=== PATIENT | female | born 2000 | race Caucasian/White ===

== ENCOUNTER 2020-11-28 19:00 | Emergency (ER) | payer OTHER, SELFPAY ==
--- NOTE | 2020-11-28 19:03 | ED.DENTAL ---
HPI - Dental/Oral General Chief complaint: Dental/Oral Stated complaint: Toothache and Face is swollen Time Seen by Provider: 11/28/20 19:15 Source: patient and RN notes reviewed Mode of arrival: ambulatory Limitations: no limitations History of Present Illness HPI Narrative: 19-year-old female presents concern for left-sided dental pain. Reports she has wisdom teeth coming in and has been dealing with that for several months, however the last couple days started having worsening pain to the left upper and lower posterior teeth. Reports foul taste in her mouth. Denies fever, body aches, difficulty swallowing. Reports she has been taking ibuprofen for pain MD Complaint: tooth pain Related Data Allergies Allergy/AdvReac Type Severity Reaction Status Date / Time No Known Allergies Allergy Unverified 08/14/18 10:12 Review of Systems Review of Systems: Narrative: CONSTITUTIONAL: Denies malaise, chills, sweats, or fever. EYES: Denies visual changes ENT: Denies rhinorrhea, congestion, sinus pain, otalgia or sore throat. Reports left upper and lower posterior dental pain CARDIOVASCULAR: Denies chest pain, palpitations, or edema. RESPIRATORY: Denies cough or dyspnea. GASTROINTESTINAL: Denies abdominal pain, nausea, vomiting NEUROLOGIC: Denies numbness, weakness, or current headache. All systems reviewed & are unremarkable except as noted in HPI and below PMFSH Family History Family History (Updated 06/09/18 @ 08:37 by DOCTOR UNKNOWN) Father Family history of gout Family history of hypercholesterolemia Hypertension Mother Family history of mental disorder Family history of migraine headaches Family history of gallbladder disease Other Diabetes mellitus Family history of Parkinson's disease Family history of attention deficit hyperactivity disorder (ADHD) Family history of chronic obstructive pulmonary disease Family history of congestive heart failure Family history of dementia Family history of muscular dystrophy Malignant neoplasm of prostate Social History Social History Smoking status: Never smoker Alcohol intake: never Gender identity (if verbalized by the patient): Female Comments At time of signature, agree with nursing past medical, surgical, social and family history. There is no relevant family history pertinent to the presenting complaint Exam Narrative: Exam Narrative: GENERAL: Well-appearing, well-nourished, and in no acute distress. HEAD: Normocephalic, atraumatic. EYES: PERRLA, conjunctivae clear, and EOMI. No nystagmus. ENT: Nares clear. Mucous membranes moist. Oropharynx without edema, erythema or lesions. Tonsils not enlarged and without exudate. Gingival erythema upper and lower right side near tooth 1 and 32, mild right facial swelling NECK: Supple. No lymphadenopathy. CHEST: No respiratory distress. Speaks in full sentences. HEART: Regular rate and rhythm. SKIN: Warm, dry, no rash. NEURO: Alert and oriented x3. PSYCH: Normal mood and affect Course Course Emergency Course: Patient is aware of diagnosis, understands and agrees to treatment plan. Anticipatory guidance given. Patient agrees to follow-up as directed and is aware of reasons to seek care at the emergency department. Portions of this record may have been created with voice recognition software Vital Signs Vital signs: Reviewed. MDM - Dental/Oral MDM Narrative Medical decision making narrative: Patients pain and complaint coupled with physical findings are consistant with dentalgia. There are no focal signs of space occupying lesions that are compromising to the airway; no dysphagia, odynophagia, dysphonia, or dyspnea. No uvular deviation or soft palate edema. Patient is non-toxic appearing. The floor of the mouth is soft with no signs of Luis Fernando's Angina; no induration below mandible, no neck pain. Patient is without trismus or drooling and able to swallow secretions. Patient is felt appropriate for dischar
[2020-11-28 19:17] VITALS: BP 109/70; PULSE 100; RESP 16; O2SAT 100
== END 2020-11-28 19:23 | disposition home or self-care (01) ==
PROVIDERS: Emergency Provider Nurse Practitioner
DX: K08.89 Other specified disorders of teeth and supporting structures (principal)
CPT/HCPCS: 99213; G0463

== ENCOUNTER 2021-10-19 11:50 | Emergency (ER) | payer OTHER, SELFPAY ==
--- NOTE | 2021-10-19 11:55 | ED.URI ---
HPI - URI/Sore Throat General Chief Complaint: Upper Respiratory Infection Stated Complaint: sore throat runny nose Time Seen by Provider: 10/19/21 11:55 Source: patient Mode of arrival: ambulatory Limitations: no limitations History of Present Illness HPI Narrative: Ms. Keyes is a 20-year-old female patient presenting to the clinic today with complaints of runny nose and sore throat x2 days. She denies any fever or chills. Reports that her work wants her tested for COVID and flu. MD elicited complaint: sore throat and nasal congestion Related Data Home Medications Medication Instructions Recorded Confirmed No Home Medications 09/24/21 09/24/21 Allergies Allergy/AdvReac Type Severity Reaction Status Date / Time No Known Allergies Allergy Verified 10/19/21 12:01 Review of Systems Review of Systems: Pertinent positives per HPI. Patient denies any fever, chills, rash, headache, visual changes, dizziness, cough, shortness of breath, chest pain, palpitations, nausea, vomiting, diarrhea, constipation, abdominal pain, or any urinary issues. PMFSH Past Medical History Medical History Anxiety Migraine Migraine aura, persistent, intractable Surgical History Surgical History No history of previous surgery Family History Family History Father Family history of gout Family history of hypercholesterolemia Hypertension Diabetes mellitus Mother Family history of mental disorder Family history of migraine headaches Family history of gallbladder disease Depression Anxiety Sibling Depression Anxiety Grandparent Hypertension Other Family history of Parkinson's disease Family history of attention deficit hyperactivity disorder (ADHD) Family history of chronic obstructive pulmonary disease Family history of congestive heart failure Family history of dementia Family history of muscular dystrophy Malignant neoplasm of prostate Social History Social History Social History: Patient is single, lives with her family in [place]. 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 She has a few puffs of a cigar occasionally. Smoking status: Current some day smoker Tobacco type: e-cigarettes/vaping Alcohol intake: never Substance use: never Substance use type: does not use Gender identity (if verbalized by the patient): Female Agree to blood products: Yes Comments At the time of my signature, I reviewed and agree with the nursing past medical, surgical, social, and family history. There is no relevant family history pertinent to the patient complaint. Exam Narrative: General: Well-developed, well nourished, in no apparent distress Head: Normocephalic, atraumatic Eyes: Pupils equally round and reactive to light bilaterally, EOM intact, sclera and conjunctive clear, no discharge, lids normal Ears: TMs intact and dull, ear canals clear, no drainage, grossly hearing normal. Nose: Nares patent, clear nasal discharge, no inflammation, no sinus tenderness. Mouth: Oral pharynx without lesions or masses, good dentition, MMM. Oropharynx red, postnasal drip Neck: Supple, trachea midline, no enlargement of anterior or posterior cervical nodes, no thyroid masses or goiter palpable. Cardio: Regular rate and rhythm, s1 and s2 normal, no murmur appreciated. Resp: Clear to auscultation bilaterally, no rhonchi, rales, wheezing or rubs Course Course Emergency Course: Portions of this record may have been created with voice recognition software. Level of Care: Express Care Visit Vital Signs Vital signs: Vital signs reviewed MDM - URI/Sore Throat MDM Narrative Medical decision making narrative:
[2021-10-19 11:57] VITALS: BP 112/73; PULSE 92; RESP 16; TEMP 36.6; O2SAT 98
== END 2021-10-19 12:32 | disposition home or self-care (01) ==
PROVIDERS: Emergency Provider Nurse Practitioner Family
DX: J06.9 Acute upper respiratory infection, unspecified (principal); R09.82 Postnasal drip; J02.9 Acute pharyngitis, unspecified; F17.290 Nicotine dependence, other tobacco product, uncomplicated
CPT/HCPCS: 87081; 87426; 87804; 87880; 99213; C9803; G0463

== ENCOUNTER 2021-12-07 17:26 | Emergency (ER) | payer OTHER, SELFPAY ==
[2021-12-07 17:30] VITALS: BP 102/63; PULSE 70; RESP 16; TEMP 37.3; O2SAT 100
--- NOTE | 2021-12-07 17:32 | ED.EAR ---
HPI - Ear Problem General Chief complaint: Ear Stated complaint: ear pain Time Seen by Provider: 12/07/21 17:50 Source: patient and RN notes reviewed Mode of arrival: ambulatory Limitations: no limitations History of Present Illness HPI Narrative: 21-year-old female presents with concern for bilateral ear pain. She reports she started having ear pain when she [place] the [place] she denies drainage from her ears. She denies nasal congestion, rhinorrhea, sore throat, fever. MD Complaint: ear pain Related Data Allergies Allergy/AdvReac Type Severity Reaction Status Date / Time No Known Allergies Allergy Verified 12/07/21 17:43 Review of Systems Review of Systems: CONSTITUTIONAL: Denies malaise, chills, sweats, or fever. EYES: Denies visual changes, redness, or discharge. ENT: Denies rhinorrhea, congestion, sinus pain, and sore throat. Reports bilateral ear pain CARDIOVASCULAR: Denies chest pain, palpitations, or edema. RESPIRATORY: Denies cough. Denies dyspnea. GASTROINTESTINAL: Denies abdominal pain, nausea, vomiting, diarrhea SKIN: Denies rash or itching. MUSCULOSKELETAL: Denies myalgia. NEUROLOGIC: Denies headache. All systems reviewed & are unremarkable except as noted in HPI and below PMFSH Past Medical History Medical History Anxiety Migraine Migraine aura, persistent, intractable Surgical History Surgical History No history of previous surgery Family History Family History Father Family history of gout Family history of hypercholesterolemia Hypertension Diabetes mellitus Mother Family history of mental disorder Family history of migraine headaches Family history of gallbladder disease Depression Anxiety Sibling Depression Anxiety Grandparent Hypertension Other Family history of Parkinson's disease Family history of attention deficit hyperactivity disorder (ADHD) Family history of chronic obstructive pulmonary disease Family history of congestive heart failure Family history of dementia Family history of muscular dystrophy Malignant neoplasm of prostate Social History Social History Social History: Patient is single, lives with her family in [place]. 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 She has a few puffs of a cigar occasionally. Smoking status: Current some day smoker Tobacco type: e-cigarettes/vaping Alcohol intake: never Substance use: never Substance use type: does not use Gender identity (if verbalized by the patient): Female Agree to blood products: Yes Comments At time of signature, agree with nursing past medical, surgical, social and family history. There is no relevant family history pertinent to the presenting complaint Exam Narrative: GENERAL: Well-appearing, well-nourished, and in no acute distress. HEAD: Normocephalic EYES: PERRLA, conjunctivae clear ENT: Nares clear. Mucous membranes moist. TM pearly cerna with dull light reflex bilaterally; no tragal tenderness, bilateral EAC slightly erythematous and edematous without drainage Oropharynx not erythematous without lesions. Tonsils not enlarged and without exudate, no drooling, no hoarseness, no trismus, uvula midline. NECK: Supple. No lymphadenopathy CHEST: Clear to auscultation, breath sounds equal. No wheezing, rhonchi, rales, or stridor. No respiratory distress, speaks in full sentences. HEART: Regular rate and rhythm. No murmur heard. SKIN: Warm, dry, no rash. NEURO: Alert and oriented x3. PSYCH: Normal mood and affect Course Course Emergency Course: Patient is aware of diagnosis, understands and agrees to treatment plan. Anticipatory guidance given. Patient ag
== END 2021-12-07 18:04 | disposition home or self-care (01) ==
PROVIDERS: Emergency Provider Nurse Practitioner
DX: H60.93 Unspecified otitis externa, bilateral (principal); F17.290 Nicotine dependence, other tobacco product, uncomplicated
CPT/HCPCS: 99213; G0463

== ENCOUNTER 2022-09-22 17:51 | Emergency (ER) | payer OTHER, SELFPAY ==
--- NOTE | 2022-09-22 17:53 | ED.URI ---
HPI - URI/Sore Throat General Chief Complaint: Upper Respiratory Infection Stated Complaint: sore throat Time Seen by Provider: 09/22/22 17:53 Source: patient and RN notes reviewed History of Present Illness HPI Narrative: Patient is a 21-year-old female who presents to urgent care with complaints of a sore throat since yesterday. Patient denies any fever, nausea or vomiting. Patient states she took 1 dose of Mucinex this afternoon. No other acute complaints. No acute distress noted. Patient aware of the plan of care. Some parts of this dictation were generated by voice recognition software and may contain typographical and/or grammatical inaccuracies. Related Data Allergies Allergy/AdvReac Type Severity Reaction Status Date / Time No Known Allergies Allergy Verified 09/22/22 18:08 Review of Systems Review of Systems: CONSTITUTIONAL: Denies fever, chills, or sweats. EYES: Denies visual changes, redness, or discharge. ENT: Denies rhinorrhea, congestion, otalgia. Reports sore throat CARDIOVASCULAR: Denies chest pain, palpitations, or edema. RESPIRATORY: Denies cough or dyspnea. GASTROINTESTINAL: Denies abdominal pain, nausea, vomiting, or diarrhea. GENITOURINARY: Denies dysuria or hematuria. SKIN: Denies rash or itching. MUSCULOSKELETAL: Denies back pain, joint pain, or myalgia. NEUROLOGIC: Denies headache, numbness, or weakness. All other systems reviewed are negative, except as documented in HPI. [facility] Past Medical History Medical History (Updated 09/22/22 @ 18:25 by PATY Thomas) Anxiety Migraine Migraine aura, persistent, intractable Surgical History Surgical History (Updated 12/11/21 @ 14:26 by Ananya Samuel) No history of previous surgery [place] teeth removed (~11/2020) Family History Family History Father Family history of gout Family history of hypercholesterolemia Hypertension Diabetes mellitus Mother Family history of mental disorder Family history of migraine headaches Family history of gallbladder disease Depression Anxiety Sibling Depression Anxiety Grandparent Hypertension Other Family history of Parkinson's disease Family history of attention deficit hyperactivity disorder (ADHD) Family history of chronic obstructive pulmonary disease Family history of congestive heart failure Family history of dementia Family history of muscular dystrophy Malignant neoplasm of prostate Social History Social History Social History: Patient is single, lives with her family in [place]. 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 She has a few puffs of a cigar occasionally. Smoking status: Current some day smoker Tobacco type: e-cigarettes/vaping Alcohol intake: never Substance use: never Substance use type: does not use Living arrangements: with family Occupation/Education: occupation Gender identity (if verbalized by the patient): Female Agree to blood products: Yes Comments At the time of my signature, I reviewed and agree with the nursing past medical, surgical, social, and family history. There is no relevant family history pertinent to the patient complaint. Exam Narrative: GENERAL: This is a well-nourished, well-developed patient, in no apparent distress. HEAD: normocephalic, atraumatic. EYES: PERRL. Sclera clear/white. Vision is grossly intact. EARS: External ears normal, auditory canals clear and without drainage, TMs normal without perforation. Hearing grossly intact. NOSE: External nose normal with no obvious nasal discharge, nares without redness, no rhinorrhea. THROAT: Mucous membranes moist, mild erythema in the posterior pharynx with slight ulceration. Moderate postnasal drainage. NECK: Neck supple, non-tender without lymphadenopathy RESPIRATORY: Clear to auscultation. B
[2022-09-22 18:00] VITALS: BP 112/79; PULSE 83; RESP 14; TEMP 36.9; O2SAT 100
== END 2022-09-22 18:27 | disposition home or self-care (01) ==
PROVIDERS: Emergency Provider Nurse Practitioner Family; PCP Nurse Practitioner Family
DX: J02.0 Streptococcal pharyngitis (principal); F17.290 Nicotine dependence, other tobacco product, uncomplicated
CPT/HCPCS: 87880; 99213; G0463

== ENCOUNTER 2023-06-05 18:48 | Emergency (ER) | payer OTHER, SELFPAY ==
[2023-06-05 18:58] VITALS: BP 131/89; PULSE 100; RESP 16; TEMP 36.9; O2SAT 100
--- NOTE | 2023-06-05 19:05 | ED.URI ---
HPI - URI/Sore Throat General Chief Complaint: Upper Respiratory Infection Stated Complaint: throat Time Seen by Provider: 06/05/23 19:05 Source: patient, RN notes reviewed and old records reviewed Mode of arrival: ambulatory Limitations: no limitations History of Present Illness HPI Narrative: 22-year-old female presents to the [facility] with complaints of a sore throat for 1 week. Has taken Mucinex. Reports exposure to strep Treatments prior to arrival: cold medicine Related Data Allergies Allergy/AdvReac Type Severity Reaction Status Date / Time No Known Allergies Allergy Verified 09/22/22 18:08 Review of Systems Review of Systems: All systems reviewed & are unremarkable except as noted in HPI and below Constitutional: Constitutional: Reports as per HPI and Reports headache(s) Eyes: Eyes: Reports no additional eye complaints ENT: Reports as per HPI Cardiovascular: Cardiovascular: Reports no additional cardiovascular complaints, Denies chest pain and Denies dyspnea Respiratory: Respiratory: Reports no additional respiratory complaints, Denies chest congestion, Denies cough and Denies dyspnea Gastrointestinal: Gastrointestinal: Reports no additional gastrointestinal complaints, Denies abdominal pain, Denies nausea and Denies vomiting Musculoskeletal: Musculoskeletal: Reports no additional musculoskeletal complaints Integumentary/Breasts: Skin/Breast: Reports system reviewed and no additional complaints, except as docu Neurologic: Reports system reviewed and no additional complaints, except as documented Psychiatric: Psychiatric: Reports no additional psychiatric complaints Allergic/Immunologic: Allergic/Immunologic: Reports no additional allergic/immunologic complaints PMFSH Past Medical History Medical History Anxiety Migraine Migraine aura, persistent, intractable Surgical History Surgical History No history of previous surgery [place] teeth removed (~11/2020) Family History Family History Father Family history of gout Family history of hypercholesterolemia Hypertension Diabetes mellitus Mother Family history of mental disorder Family history of migraine headaches Family history of gallbladder disease Depression Anxiety Sibling Depression Anxiety Grandparent Hypertension Other Family history of Parkinson's disease Family history of attention deficit hyperactivity disorder (ADHD) Family history of chronic obstructive pulmonary disease Family history of congestive heart failure Family history of dementia Family history of muscular dystrophy Malignant neoplasm of prostate Social History Social History Social History: Patient is single, lives with her family in [place]. 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 She has a few puffs of a cigar occasionally. Smoking status: Current some day smoker Tobacco type: e-cigarettes/vaping Alcohol intake: never Substance use: never Substance use type: does not use Living arrangements: with family Occupation/Education: occupation Gender identity (if verbalized by the patient): Female Agree to blood products: Yes Comments At the time of my signature, I reviewed and agree with the nursing past medical, surgical, social, and family history. There is no relevant family history pertinent to the patient complaint. Exam Const: General: cooperative, healthy appearing, comfortable, no acute distress, well developed, alert and well nourished Nutritional Appearance: well nourished Orientation/consciousness: patient oriented x3 Limitations: no limitations HENMT: Head: normal to inspection Ears: hearing grossly normal bilaterally, external ear
== END 2023-06-05 19:19 | disposition home or self-care (01) ==
PROVIDERS: Emergency Provider Nurse Practitioner
DX: J02.0 Streptococcal pharyngitis (principal); F17.290 Nicotine dependence, other tobacco product, uncomplicated
CPT/HCPCS: 87880; 99213; G0463

== ENCOUNTER 2023-08-05 14:22 | Emergency (ER) | payer OTHER, SELFPAY ==
[2023-08-05 14:30] VITALS: BP 106/72; PULSE 67; RESP 14; TEMP 37.3; O2SAT 100
--- NOTE | 2023-08-05 15:02 | ED.URI ---
HPI - URI/Sore Throat General Chief Complaint: Upper Respiratory Infection Stated Complaint: Headache/Congestion/Cough Source: patient and RN notes reviewed Mode of arrival: ambulatory Limitations: no limitations History of Present Illness HPI Narrative: 22-year-old female presented for complaints of malaise, dry throat, headache, cough, subjective fever and chills. Onset 5 days. Denies shortness of breath, wheezing, nausea vomiting or lethargy. Endorses chronic diarrhea which is unchanged. MD elicited complaint: cough Related Data Allergies Allergy/AdvReac Type Severity Reaction Status Date / Time No Known Allergies Allergy Verified 09/22/22 18:08 Review of Systems Review of Systems: CONSTITUTIONAL: Endorses malaise, chills, sweats, fever EYES: Denies visual changes, redness, or discharge ENT: Reports rhinorrhea, congestion, sore throat CARDIOVASCULAR: Denies chest pain, palpitations, edema RESPIRATORY: Reports cough, post nasal drainage. Denies dyspnea GASTROINTESTINAL: Denies abdominal pain, nausea, vomiting, diarrhea SKIN: Denies rash or itching MUSCULOSKELETAL: Endorses myalgia NEUROLOGIC: endorses headache PMFSH Past Medical History Medical History Anxiety Migraine Migraine aura, persistent, intractable Surgical History Surgical History No history of previous surgery [place] teeth removed (~11/2020) Family History Family History Father Family history of gout Family history of hypercholesterolemia Hypertension Diabetes mellitus Mother Family history of mental disorder Family history of migraine headaches Family history of gallbladder disease Depression Anxiety Sibling Depression Anxiety Grandparent Hypertension Other Family history of Parkinson's disease Family history of attention deficit hyperactivity disorder (ADHD) Family history of chronic obstructive pulmonary disease Family history of congestive heart failure Family history of dementia Family history of muscular dystrophy Malignant neoplasm of prostate Social History Social History Social History: Patient is single, lives with her family in [place]. 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 She has a few puffs of a cigar occasionally. Smoking status: Current some day smoker Tobacco type: e-cigarettes/vaping Alcohol intake: never Substance use: never Substance use type: does not use Living arrangements: with family Occupation/Education: occupation Gender identity (if verbalized by the patient): Female Agree to blood products: Yes Exam Narrative: GENERAL: mildly Ill-appearing, nontoxic no acute distress. EYES: PERRLA, conjunctivae clear ENT: Mucous membranes moist. TMs pearly cerna with dull light reflex bilaterally; no tragal tenderness. Oropharynx erythematous without lesions or exudate, no drooling, no hoarseness, no trismus, uvula midline. CHEST: Clear to auscultation, breath sounds equal. No wheezing, rhonchi, rales, or stridor. No respiratory distress, speaks in full sentences. HEART: Regular rate and rhythm. No murmur heard. SKIN: Warm, dry, no rash. NEURO: Alert and oriented x3. PSYCH: Normal mood and affect Course Course Emergency Course: Patient is aware of diagnosis, understands and agrees to treatment plan. Anticipatory guidance given. Patient agrees to follow-up as directed and is aware of reasons to seek care at the emergency department. Portions of this record may have been created with voice recognition software Level of Care: Express Care Visit Vital Signs Vital signs: Vital Signs Temperature 99.1 F 08/05/23 14:30 Pulse Rate 67 08/05/23 14:30 Respiratory Rate 14 03
== END 2023-08-05 15:10 | disposition home or self-care (01) ==
PROVIDERS: Emergency Provider Nurse Practitioner Family
DX: J10.1 Influenza due to other identified influenza virus with other respiratory manifestations (principal); Z20.822 Contact with and (suspected) exposure to COVID-19; F17.290 Nicotine dependence, other tobacco product, uncomplicated
CPT/HCPCS: 87426; 87804; 99213; G0463

== ENCOUNTER 2024-02-26 09:18 | Emergency (ER) | payer OTHER, SELFPAY ==
[2024-02-26 09:24] VITALS: BP 105/71; PULSE 65; RESP 20; TEMP 36.7; O2SAT 100
--- NOTE | 2024-02-26 09:29 | ED.URI ---
HPI - URI/Sore Throat General Chief Complaint: Upper Respiratory Infection Stated Complaint: throat/cough/headache Time Seen by Provider: 02/26/24 09:29 Source: patient Mode of arrival: ambulatory Limitations: no limitations History of Present Illness HPI Narrative: 23-year-old female presents with complaint of sore throat, cough, congestion, headache and fatigue for 1 day. Afebrile. Reports exposure to COVID at office from her coworkers. Patient also requesting strep test. Denies nausea vomiting diarrhea. Not taking any bycc-[id number]-[id number] medications to treat her symptoms other than Flonase for her allergies. all systems reviewed and negative except as noted above. Related Data Home Medications Medication Instructions Recorded Confirmed No Home Medications 02/26/24 02/26/24 Allergies Allergy/AdvReac Type Severity Reaction Status Date / Time No Known Allergies Allergy Verified 09/22/22 18:08 Review of Systems Review of Systems: CONSTITUTIONAL: Denies fever, chills, or sweats. EYES: Denies visual changes, redness, or discharge. ENT: Reports rhinorrhea, congestion, sore throat. Denies otalgia. CARDIOVASCULAR: Denies chest pain, palpitations, or edema. RESPIRATORY: reports cough. Denies dyspnea. GASTROINTESTINAL: Denies abdominal pain, nausea, vomiting, or diarrhea. GENITOURINARY: Denies dysuria or hematuria. SKIN: Denies rash or itching. MUSCULOSKELETAL: Denies back pain, joint pain, or myalgia. NEUROLOGIC: reports headache. Denies numbness, or weakness. PSYCHIATRIC: Denies anxiety or depression. All other systems reviewed are negative, except as documented in HPI. [facility] Past Medical History Medical History Anxiety Migraine Migraine aura, persistent, intractable Surgical History Surgical History No history of previous surgery [place] teeth removed (~11/2020) Family History Family History Father Family history of gout Family history of hypercholesterolemia Hypertension Diabetes mellitus Mother Family history of mental disorder Family history of migraine headaches Family history of gallbladder disease Depression Anxiety Sibling Depression Anxiety Grandparent Hypertension Other Family history of Parkinson's disease Family history of attention deficit hyperactivity disorder (ADHD) Family history of chronic obstructive pulmonary disease Family history of congestive heart failure Family history of dementia Family history of muscular dystrophy Malignant neoplasm of prostate Social History Social History Social History: Patient is single, lives with her family in [place]. 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 She has a few puffs of a cigar occasionally. Smoking status: Current some day smoker Tobacco type: e-cigarettes/vaping Alcohol intake: never Substance use: never Substance use type: does not use Living arrangements: with family Occupation/Education: occupation Gender identity (if verbalized by the patient): Female Agree to blood products: Yes Comments At time of signature, agree with nursing past medical, surgical, social and family history. There is no relevant family history pertinent to the presenting complaint. Exam Narrative: GENERAL: This is a well-nourished, well-developed patient, in no apparent distress. HEAD: normocephalic, atraumatic. EYES: PERRL. Sclera clear/white. Vision is grossly intact. EARS: External ears normal, auditory canals clear and without drainage, TMs normal without perforation. Hearing grossly intact. NOSE: External nose normal with no obvious nasal discharge, nares without redness, no rhinorrhea. THROAT: Mucous membranes moist
[2024-02-26 09:54] LABS: EDSTREPNEGPOS1 Negative (Negative)
== END 2024-02-26 10:02 | disposition home or self-care (01) ==
PROVIDERS: Emergency Provider Nurse Practitioner Family
DX: J06.9 Acute upper respiratory infection, unspecified (principal); B97.89 Other viral agents as the cause of diseases classified elsewhere; F17.210 Nicotine dependence, cigarettes, uncomplicated
CPT/HCPCS: 87081; 87880; 99213; G0463

== ENCOUNTER 2024-04-02 15:42 | Emergency (ER) | payer OTHER, SELFPAY ==
--- NOTE | ~2024-04-02 | XR_ITS ---
EXAMINATION: XR chest 2V DATE: 04/02/2024 16:22 INDICATION: Cough TECHNIQUE: PA and lateral views of the chest were obtained. COMPARISON: None FINDINGS: The lungs are clear with no focal airspace opacities, pulmonary edema, pleural effusion or pneumothor ax. The cardiomediastinal silhouette is normal. Mild thoracic dextrocurvature. IMPRESSION: 1. No acute cardiopulmonary disease. Reviewed, dictated and finalized at location A.
--- NOTE | 2024-04-02 15:55 | ED.URI ---
HPI - URI/Sore Throat General Chief Complaint: Upper Respiratory Infection Stated Complaint: Sore Throat/Chest Congestion Time Seen by Provider: 04/02/24 15:55 Source: patient and RN notes reviewed Mode of arrival: ambulatory Limitations: no limitations History of Present Illness HPI Narrative: 23-year-old female presents with concern for day history of sore throat, cough, hoarse voice. She denies fever, body aches, chills, sweats. MD elicited complaint: cough and sore throat Related Data Allergies Allergy/AdvReac Type Severity Reaction Status Date / Time No Known Allergies Allergy Verified 04/02/24 16:03 Review of Systems Review of Systems: CONSTITUTIONAL: Denies malaise, chills, sweats, or fever. EYES: Denies visual changes, redness, or discharge. ENT: Reports sore throat. CARDIOVASCULAR: Denies chest pain, palpitations, or edema. RESPIRATORY: Reports cough. Denies dyspnea. GASTROINTESTINAL: Denies abdominal pain, nausea, vomiting, diarrhea SKIN: Denies rash or itching. MUSCULOSKELETAL: Denies myalgia. NEUROLOGIC: Denies headache. All systems reviewed & are unremarkable except as noted in HPI and below PMFSH Past Medical History Medical History Anxiety Migraine Migraine aura, persistent, intractable Surgical History Surgical History No history of previous surgery [place] teeth removed (~11/2020) Family History Family History Father Family history of gout Family history of hypercholesterolemia Hypertension Diabetes mellitus Mother Family history of mental disorder Family history of migraine headaches Family history of gallbladder disease Depression Anxiety Sibling Depression Anxiety Grandparent Hypertension Other Family history of Parkinson's disease Family history of attention deficit hyperactivity disorder (ADHD) Family history of chronic obstructive pulmonary disease Family history of congestive heart failure Family history of dementia Family history of muscular dystrophy Malignant neoplasm of prostate Social History Social History Social History: Patient is single, lives with her family in [place]. 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 She has a few puffs of a cigar occasionally. Smoking status: Current some day smoker Tobacco type: e-cigarettes/vaping Alcohol intake: never Substance use: never Substance use type: does not use Living arrangements: with family Occupation/Education: occupation Gender identity (if verbalized by the patient): Female Agree to blood products: Yes Comments At time of signature, agree with nursing past medical, surgical, social and family history. There is no relevant family history pertinent to the presenting complaint Exam Narrative: GENERAL: Well-appearing, well-nourished, and in no acute distress. HEAD: Normocephalic EYES: PERRLA, conjunctivae clear ENT: Nares clear. Mucous membranes moist. TM pearly cerna with sharp light reflex bilaterally; no tragal tenderness. Oropharynx erythematous without lesions. Tonsils not enlarged and without exudate, no drooling, no trismus, uvula midline. Hoarse voice NECK: Supple. No lymphadenopathy CHEST: Clear to auscultation, breath sounds equal. No wheezing, rhonchi, rales, or stridor. No respiratory distress, speaks in full sentences. HEART: Regular rate and rhythm. No murmur heard. SKIN: Warm, dry, no rash. NEURO: Alert and oriented x3. PSYCH: Normal mood and affect Course Course Emergency Course: Patient is aware of diagnosis, understands and agrees to treatment plan. Anticipatory guidance given. Patient agrees to follow-up as directed and is aware of reasons to seek care at the emergency department. Portions of this record may have been created with voice recognition software Level of Care: Express Care Visit Vital Signs Vital signs: Reviewed. MDM - URI/Sore Throat MDM Narrative Medical decision making narrative: Differential diagnosis considered: Vance virus, strep pharyngitis, allergic rhinitis, upper respiratory tract infection, sinusitis, rhinosinusitis, nasopharyngitis. viral pharyngitis, otitis media, otitis externa, pneumonia, bronchitis, viral cough syndrome, viral syndrome, and influenza. Exam findings show no acute concerns or changes; patient is non-toxic appearing and is in no distress. Patient is appropriate for outpatient treatment and follow-up. Lab Data Attestation: I reviewed the patient's lab results. Imaging Data My impression: Images reviewed, interpreted by radiologist, agree, see report. Radiologist's impression: EXAMINATION: XR chest 2V DATE: 04/02/2024 16:22 INDICATION: Cough TECHNIQUE: PA and lateral views of the chest were obtained. COMPARISON: None FINDINGS: The lungs are clear with no focal airspace opacities, pulmonary edema, pleural effusion or pneumothorax. The cardiomediastinal silhouette is normal. Mild thoracic dextrocurvature. IMPRESSION: 1. No acute cardiopulmonary disease. Critical Care Time Critical Care Time Critical Care Time: No Discharge Plan Discharge Clinical Impression: Bronchitis Patient Disposition: Home, Self-Care Condition: Stable Instructions: Acute Bronchitis (ED) Additional Instructions: Your x-ray is normal, you do not have pneumonia Your rapid strep swab was negative today at [facility]. A throat culture will be sent to the laboratory for further testing. If the test is positive, you will receive a phone call within 48 hours and an appropriate antibiotic will be initiated at that time. Your symptoms are likely due to a viral illness, which is not treated with antibiotics. Viral symptoms can be present for up to a few weeks. -Alternate Tylenol and Motrin per package directions for fever or pain. -Antihistamine medication such as Benadryl at night and Zyrtec during the day can help improve symptoms. -Eat and drink things that are easy to swallow, like tea or soup, or popsicles to suck on. -Oral rinses such as: Salt water gargles and/or may use topical anesthetic (eg. Chloraseptic spray) or lozenges to relieve dryness or throat pain). -Frequent hand washing or hand mohs surgeon/general dermatologist is one of the best ways to prevent spread of infection. -Follow up with primary care provider in 2-3 days if condition is not improving; or seek ER visit if you have trouble breathing, cannot drink enough fluids, have muffled voice, difficulty opening your mouth, or severe swelling. Prescriptions: New dextromethorphan-guaifenesin [Mucinex DM] 60-1,200 mg tablet extended release 12 hr 1 tablet PO Q12H Qty: 12 0RF methylprednisolone [Medrol (Nato)] 4 mg tablets,dose pack See Rx Instructions .ROUTE .COMPLEX Qty: 21 0RF Rx Instructions: orally per package directions Follow-up/Referrals: UNKNOWN,DOCTOR [Primary Care Provider] - Stand Alone Forms: Work/School Release IP Time of Disposition: 16:29
[2024-04-02 15:56] VITALS: BP 103/70; PULSE 75; RESP 16; TEMP 36.9; O2SAT 100
[2024-04-02 16:11] LABS: EDSTREPNEGPOS1 Negative (Negative)
== END 2024-04-02 16:40 | disposition home or self-care (01) ==
PROVIDERS: Emergency Provider Nurse Practitioner
DX: J40 Bronchitis, not specified as acute or chronic (principal); F17.290 Nicotine dependence, other tobacco product, uncomplicated
CPT/HCPCS: 71046; 87081; 87880; 99213; G0463

== ENCOUNTER 2024-07-19 13:41 | Emergency (ER) | payer OTHER, SELFPAY ==
--- NOTE | ~2024-07-19 | XR_ITS ---
Clinical Indication: Chest pain PA and lateral views of the chest: Comparison: 04/02/2024 Findings: The lungs are clear, without evidence of focal consolidation or pleural effusion. Cardiome diastinal silhouette is within normal limits. Bones and soft tissues are unremarkable. Impression: Normal chest. Reviewed, dictated and finalized at [facility]. L STITCHER Impression: Normal chest.
[2024-07-19 13:57] VITALS: BP 124/76; PULSE 87; RESP 20; TEMP 36.5
--- NOTE | 2024-07-19 14:49 | ED_ITS ---
HPI - General Adult General Chief complaint: Chest Pain Stated complaint: Chest Pain Time Seen by Provider: 07/19/24 14:30 Source: patient, RN notes reviewed and old records reviewed Mode of arrival: ambulatory Limitations: no limitations History of Present Illness HPI narrative: 23 year old female presents to [facility] care with complaint of having some upper chest discomfort which occurred when she stood up after lying down last night. Patient reports that pain worse with deep breathing or with hiccups or yawning.. Patient reports that she thought she was having a panic attack. Patient reports that when she got up this morning pain is back and it radiates to her left shoulder and neck muscle and it shoots shocking pain to her pointer finge, denies any knwn injury.. 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 Patient reports that she has not traveled lately or is not on control pills patient does vape daily. Patient appears in no distress with respirations even and nonlabored with SAO2 99% on room air. MD complaint: upper chest pain radiates to left shouler , side of neck, shoots index fing Onset (ago): day(s) (since last night) Location: chest (upper chest left shoulder, neck and to index finger.) Severity scale (1-10): 6 Treatments prior to arrival: none Related Data Allergies Allergy/AdvReac Type Severity Reaction Status Date / Time No Known Allergies Allergy Verified 07/19/24 13:52 Review of Systems Review of Systems: CONSTITUTIONAL: Denies fever, chills, or sweats. EYES: Denies visual changes, redness, or discharge. ENT: Denies rhinorrhea, congestion, sore throat, or otalgia. CARDIOVASCULAR: upper chest pain,no palpitations, or edema.states increased pain with deep breathing yawning and hiccups RESPIRATORY: Denies cough or dyspnea. GASTROINTESTINAL: Denies abdominal pain, nausea, vomiting, or diarrhea. GENITOURINARY: Denies dysuria or hematuria. SKIN: Denies rash or itching. MUSCULOSKELETAL: Denies back pain, joint pain, reports pain from upper chest to left shoulder to her neck and shooting pain down to index finger with no known injury NEUROLOGIC: Denies headache, numbness, or weakness. PSYCHIATRIC: Positive for anxiety or depression. All systems reviewed & are unremarkable except as noted in HPI and below PMFSH Past Medical History Medical History Migraine aura, persistent, intractable Migraine Anxiety Surgical History Surgical History [place] teeth removed (~11/2020) No history of previous surgery Family History Family History Father Family history of gout Family history of hypercholesterolemia Hypertension Diabetes mellitus Mother Family history of mental disorder Family history of migraine headaches Family history of gallbladder disease Depression Anxiety Sibling Depression Anxiety Grandparent Hypertension Other Family history of Parkinson's disease Family history of attention deficit hyperactivity disorder (ADHD) Family history of chronic obstructive pulmonary disease Family history of congestive heart failure Family history of dementia Family history of muscular dystrophy Malignant neoplasm of prostate Social History Social History (Updated 07/21/24 @ 16:43 by Carla Mercer NP) Social History: Patient is single, lives with her family in [place]. 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 She has a few puffs of a cigar occasionally. Smoking status: Current every day smoker Tobacco type: e-cigarettes/vaping Alcohol intake: never Substance use: never Substance use type: does not use Living arrangements: with family Occupation/Education: occupation Gender identity (if verbalized by the patient): Female Agree to blood products: Yes Comments At time of signature, agree with nursing past medical, surgical, social and family history. There is no relevant family history pertinent to the presenting complaint Exam Narrative: GENERAL: Well-appearing, well-nourished, and in no acute distress. HEAD: Normocephalic, atraumatic. EYES: PERRLA and EOMI. ENT: Nares clear, no rhinorrhea or epistaxis. Mucous membranes moist.TM's normal throat pink with no swelling NECK: Supple. no lymphadenopathy, moves neck well with no limitations CHEST: Clear to auscultation. No respiratory distress. no tachypnea or any retractions SAO2 99% on room air HEART: Regular rate and rhythm. No murmur heard. Normal peripheral pulses. ABDOMEN: Soft, nontender, nondistended, normal active bowel sounds. EXTREMITIES: Normal range of motion. No edema.pain to left shoulder reproducible with movement.strong pulses to all extremities SKIN: Warm, dry, no rash. NEURO: No focal deficits. Alert and oriented x3. Course Course Emergency Course: Patient is aware of diagnosis, understands and agrees to treatment plan.? Anticipatory guidance given.? Patient agrees to follow-up as directed and is aware of reasons to seek care at the emergency department. Portions of this record may have been created with voice recognition software Level of Care: Express Care Visit Vital Signs Vital signs: Vital Signs Temperature 36.5 C 07/19/24 13:57 Pulse Rate 87 07/19/24 13:57 Respiratory Rate 20 07/19/24 13:57 Blood Pressure 124/76 07/19/24 13:57 Oxygen Delivery Room Air 07/19/24 13:57 Temperature 36.5 C 07/19/24 13:57 Pulse Rate 87 07/19/24 13:57 Respiratory Rate 20 07/19/24 13:57 Blood Pressure 124/76 07/19/24 13:57 Oxygen Delivery Room Air 07/19/24 13:57 Reviewed Medical Decision Making MDM Narrative Medical decision making narrative: Exam findings and imaging show no acute concerns or changes; patient is non- toxic appearing and is in no distress.? Patient is appropriate for outpatient treatment and follow-up Differential Diagnosis Differential Diagnosis: atypical chest pain, anxiety, costochondritis, muscle strain Medical Records Medical records reviewed: Yes I reviewed the external patient's medical records. Vital Signs Vital Signs: Vital Signs Temperature 36.5 C 07/19/24 13:57 Pulse Rate 87 07/19/24 13:57 Respiratory Rate 07/19/24 13:57 Blood Pressure 124/76 07/19/24 13:57 Oxygen Delivery Room Air 07/19/24 13:57 Temperature 36.5 C 07/19/24 13:57 Pulse Rate 87 07/19/24 13:57 Respiratory Rate 20 07/19/24 13:57 Blood Pressure 124/76 07/19/24 13:57 Oxygen Delivery Room Air 07/19/24 13:57 Imaging Data Attestation: I personally reviewed and interpreted this imaging study as follows: My impression: normal chest Radiologist's impression: [facility] [address] [place] [address] XRay Report Signed Patient: Arlyn Keyes : 2000 MR#: [id number] Age: 23 Acct:[id number] Loc: [facility] ADM Date: 07/19/24Attending Dr: Ordering Physician: Carla Mercer APRN Date of Service: 07/19/24 Procedure(s): XR chest 2V Accession Number(s): [id number] cc: TOUR NARRATOR PHYSICIAN; Carla Mercer APRN~ Clinical Indication: Chest pain PA and lateral views of the chest: Comparison: 04/02/2024 Findings: The lungs are clear, without evidence of focal consolidation or pleural effusion. Cardiomediastinal silhouette is within normal limits. Bones and soft tissues are unremarkable. Impression: Normal chest. Reviewed, dictated and finalized at location . N CAPITAL MANAGER Please be advised this is a medical document. It is intended for [id number]-pt-[id number] communication. It is written in medical language and may contain unfamiliar abbreviations or verbiage. Medical documents are intended to carry relevant information, facts as evident, and the clinical opinion of the practitioner at the time of the encounter. This report may have been done utilizing a voice recognition system. Attempts have been made to correct errors. However, there may be uncorrected grammatical, spelling, and recognition errors present. The file time of this note does not necessarily represent the time of service. Dictated By: Joni Blair MD 07/19/24 1442 Signed By: <Electronically signed by Joni Blair MD in OV> Critical Care Time Critical Care Time Critical Care Time: No Discharge Plan Discharge Clinical Impression: Costalchondritis Patient Disposition: Home, Self-Care Condition: Stable Instructions: Costochondritis (ED) Additional Instructions: Increase fluids especially juices and water [id number] cough and cold medicine of your choice for any symptoms Tylenol or ibuprofen for fever pain Steroids as directed--take with food heat to the face 20-30 minutes 4-6 times a day for pain Salt water gargles, throat lozenges or throat sprays as desired Any increased pain or any shortness of breath go directly to the emergency room If your symptoms persist, change or worsen significantly before you can contact your personal physician then please, without delay, go to the emergency department for further evaluation. Follow-up with PCP in 7-10 days or sooner if needed Patient Language: Togolese Prescriptions: New prednisone 20 mg tablet 20 mg PO BID Qty: 10 0RF Follow-up/Referrals: PHYSICIAN,TOUR NARRATOR [Primary Care Provider] - Time of Disposition: 15:01 Quality Elpidio Coma Scale Eyes: Open Verbal: Oriented and Alert Motor: Follows Commands Olga Coma Total Score: 15
--- OUTSIDE RECORDS SUMMARY | 2024-07-19 16:18 | XMS_ITS | Referral Summary ---
Author Organization [facility] [address] [facility] Address [address] [place] [address] Phone Care Team Providers Care Order Desk Clerk Name Role Phone Miscellaneous, Not In File Primary Care Provider Unavailable Encounters Date Type Department Care Team Description 04/19/2024 6:15 PM THIN FILM TECHNICIAN Office Visit [facility] [address] [place] [address] Sakshi Frankel NP Paronychia of great toe of left foot (Primary Dx) from Last 3 Months Allergies No known active allergies Medications famotidine (PEPCID) 20 mg tablet Take 1 tablet (20 mg total) by mouth 2 (two) times a day for 7 days 14 tablet 2 Active ondansetron (ZOFRAN) 4 mg tablet Take 1 tablet (4 mg total) by mouth every 6 (six) hours 6 tablet 2 Active triamcinolone (KENALOG) 0.5 % creamIndication s:Paronychia of great toe of left foot Apply topically 2 (two) times a day for 7 days 30 g 4 Active Active Problems Problem Noted Date Diagnosed Date Acute streptococcal pharyngitis 10/06/2015 Overview (09/06/2016): Streptococcal pharyngitis Menorrhagia 12/29/2013 Overview (09/06/2016): Menorrhagia Medical examinations/reports status 12/29/2013 Overview (09/06/2016): Medical examinations/reports status Irritable bowel syndrome 04/27/2012 Overview (09/04/2016): IBS Immunizations Immunization Administration Dates Next Due DTaP 01/22/2005, 2,10/07/2000,06/17,02/05/2000 HPV, Quadrivalent 01/04/2015,03/02/2014,12/30/19 14 Hep A, Pediatric 01/04/2015,12/25/2010 Hep B, Adolescent or Pediatric 10/07/2000,1999,01/03/2000 Hib (HbOC) 07/13/2001, 1,06/17/2000,02/04 IPV 01/22/2005, 2,06/17/2000,02/04 MMR 01/22/2005,12/04/2000 Meningococcal MCV4P (Menactra) 11/19/2016 Meningococcal Polysaccharide (Menomune) 12/25/2010 Pneumococcal Conjugate 7-Valent 10/04/2000,06/17,02/05/2000 Tdap 12/25/2010 Varicella 12/25/2010,12/04/2000 Social History Tobacco Use Types Packs/Day Years Used Date Smoking Tobacco: Never Smokeless Tobacco: Never Alcohol Use Standard Drinks/Week Comments No 0 (1 standard drink = 0.6 oz pur e alcohol) Comments No Sex and Gender Information Value Date Recorded Sex Assigned at Not on file Legal Sex Female 11:29 PM THIN FILM TECHNICIAN Gender Identity Not on file Sexual Orientation Not on file Last Filed Vital Signs Vital Sign Reading Time Taken Comments Blood Pressure 98/64 04/19/2024 6:22 PM THIN FILM TECHNICIAN Pulse 59 04/19/2024 6:22 PM THIN FILM TECHNICIAN Temperature 36.9 C (98.4 F) 04/19/2024 6:22 PM THIN FILM TECHNICIAN Respiratory Rate 18 04/19/2024 6:22 PM THIN FILM TECHNICIAN Oxygen Saturation 99% 04/19/2024 6:22 PM THIN FILM TECHNICIAN Inhaled Oxygen Concentration - - Weight 51.3 kg (113 lb) 04/19/2024 6:22 PM THIN FILM TECHNICIAN Height 152.4 cm (5') 04/19/2024 6:22 PM THIN FILM TECHNICIAN Body Mass Index 22.07 04/19/2024 6:22 PM THIN FILM TECHNICIAN Plan of Treatment Not on file Insurance [facility] [employer] OPEN ACCESS Care Teams Order Desk Clerk Relationship Specialty Start Date End Date Miscellaneous, Not In File PCP - General 09/17/21
--- OUTSIDE RECORDS SUMMARY | 2024-07-19 16:18 | XMS_ITS | Clinical Summary ---
Author Organization [facility] Address [address] [place] [id number] Care Team Providers Care Barber Shop Manager Name Role Phone Unavailable Primary Care Provider Unavailabl e Social History Tobacco Use Types Packs/Day Years Used Date Smoking Tobacco: Never Assessed Comments Unknown Sex and Gender Information Value Date Recorded Sex Assigned at Not on file Legal Sex Female 11:58 PM CDT Gender Identity Not on file Sexual Orientation Not on file Plan of Treatment Health Maintenance Due Date Last Done Comments Hepatitis C Virus (HCV) Screening 1999 TdaP Immunization 1999 Human Papillomavirus (HPV) Immunization (1 - 3-dose series) 12/02/2014 Pap Smear 12/02/2020 Influenza Immunization (#1) 2024 SARS-COV-2 Immunization ( season) 2024 10/03/2020, 09/02/2020 Respiratory Syncytial Virus (RSV) Immunization (Adult) (1 - 1-dose 75+ series) 12/02/2074 Hepatitis B Immunization Completed 001, 02/05/2000, 01/03/2000 Pneumococcal Immunization Combined Aged Out 10/07/2000, 06/17/2000, 02/05/2000 No longer eligible based on patient's age to complete this topic DTaP/Tdap/Td Immunization Discontinued 2004, 07/13/2001, 10/07/2000, Additional history exists Meningococcal Immunization (ACWY) Aged Out No longer eligible based on patient's age to complete this topic Rotavirus Immunization Aged Out No lo nger eligible based on patient's age to complete this topic Insurance [employer] on file
--- OUTSIDE RECORDS SUMMARY | 2024-07-19 16:18 | XMS_ITS | Clinical Summary ---
Author Organization [facility] [employer] Address [address] [place] [address] Phone Care Team Providers Care Willow Analyst Name Role Phone Miscellaneous, Not In File Primary Care Provider Unavailable Allergies No known active allergies Medications famotidine [...] Irritable bowel syndrome 04/27/2012 Overview (09/04/2016): IBS Encounters Date Type Department Care Team Description 04/19/2024 6:15 PM SUPERVISOR COMPUTER OPERATIONS Office Visit [facility] [place] [address] [place] [id number] Saskhi Frankel, GUILLERMO Paronychia of great toe of left foot (Primary Dx) from Last 3 Months Immunizations Immunization Administration Dates Next Due DTaP 01/22/2005, 2,10/07/2000,06/17,02/05/2000 HPV, Quadrivalent 01/04/2015,03/02/2014,12/30/19 14 Hep A, Pediatric 01/04/2015,12/25/2010 Hep B, Adolescent or Pediatric 10/07/2000,1999,01/03/2000 Hib (HbOC) 07/13/2001, 1,06/17/2000,02/04 IPV 01/22/2005, 2,06/17/2000,02/04 MMR 01/22/2005,12/04/2000 Meningococcal MCV4P (Menactra) 11/19/2016 Meningococcal Polysaccharide (Menomune) 12/25/2010 Pneumococcal Conjugate 7-Valent 10/04/2000,06/17,02/05/2000 Tdap 12/25/2010 Varicella 12/25/2010,12/04/2000 Surgical History Surgery Date Site/Laterality Comments OTHER SURGICAL HISTORY 7-3 product nl : Vag delivery OTHER SURGICAL HISTORY A - Rotavirus: Admit OTHER SURGICAL HISTORY B - FX L patella upper pole: Dr. Esquivel Medical History Medical History Date Comments Hx Other Medical 7-3 product nl ; Comments: [facility] 12/29/2013 - Hx Other Medical 2000 A - Rotavirus; Comments: [facility] 12/29/2013 - Hx Other Medical 02/15/2015 B - FX L patell a upper pole; Comments: [facility] 03/01/2015 - Anxiety IBS (irritable bowel syndrome) Family History Medical History Relation Name Comments Hyperlipidemia Father Hyperlipidemi a; Hypertension Father Hypertension; Diabetes Father's Sister Diabetes dannielle litus; Other Mother myotonic dystro phy; Breast cancer Mother's Sister Cancer, alana ast; RED 12/27/2013 -Maternal Other Other 1 Family history of Arhthmia - pacemaker; Other Other 2 Family history of CHF; Other Other 3 Family history of Sudden >50: NO; Other Other 4 Family history of Syncopal seizures (Mother); Relation Name Status Comments Father Father's Sister Mother Mother's Sister Other 1 Other 2 Other 3 Other 4 Social History Tobacco Use Types Packs/Day Years Used Date Smoking Tobacco: Never Smokeless Tobacco: Never Alcohol Use Standard Drinks/Week Comments No 0 (1 standard drink = 0.6 oz pur e alcohol) Comments No Sex and Gender Information Value Date Recorded Sex Assigned at Not on file Legal Sex Female 11:29 PM SUPERVISOR COMPUTER OPERATIONS Gender Identity Not on file Sexual Orientation Not on file Obstetrics History Last Filed Vital Signs Vital Sign Reading Time Taken Comments Blood Pressure 98/64 04/19/2024 6:22 PM SUPERVISOR COMPUTER OPERATIONS Pulse 59 04/19/2024 6:22 PM SUPERVISOR COMPUTER OPERATIONS Temperature 36.9 C (98.4 F) 04/19/2024 6:22 PM SUPERVISOR COMPUTER OPERATIONS Respiratory Rate 18 04/19/2024 6:22 PM SUPERVISOR COMPUTER OPERATIONS Oxygen Saturation 99% 04/19/2024 6:22 PM SUPERVISOR COMPUTER OPERATIONS Inhaled Oxygen Concentration - - Weight 51.3 kg (113 lb) 04/19/2024 6:22 PM SUPERVISOR COMPUTER OPERATIONS Height 152.4 cm (5') 04/19/2024 6:22 PM SUPERVISOR COMPUTER OPERATIONS Body Mass Index 22.07 04/19/2024 6:22 PM SUPERVISOR COMPUTER OPERATIONS Plan of Treatment Health Maintenance Due Date Last Done Comments Cervical Cancer Screening 1999 Depression Screening 1999 Hepatitis C Screening 1999 Regular Well Visit/Exam 18-64 12/02/2017 DTaP/Tdap/Td Vaccine (7 - Td or Tdap) 12/25/2020 12/25/2010, 01/22/2005, 07/13/2001, Additional history exists Covid-19 Vaccine ( season) 2024 10/03/2020, 09/02/2020 Influenza Vaccine (#1) 2024 Pneumococcal vaccine <65 Aged Out 001, 06/17/2000, 02/05/2000 No longer eligible based on patient's age to complete this topic Varicella Vaccines Completed 12/25/2010, 12/04/2000 HPV Vaccines Completed 01/04/2015, 10/0 06/2013, 12/29/2013 Insurance [facility] [employer] Care Teams Willow Analyst Relationship Specialty Start Date End Date Miscellaneous, Not In File PCP - General 09/17/21
--- OUTSIDE RECORDS SUMMARY | 2024-07-19 16:18 | XMS_ITS | Clinical Summary ---
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 08/13/2022 XOCHITL OQUENDO RN GUILLERMO Active Last Documented On 10:32AM ; [facility] Plan of Treatment No Plan of Treatment Recorded Assessments Includes: Assessments from this encounter No Assessments Recorded Medical Equipment - Implanted Devices Includes: Current Devices No Medical Equipment Recorded Medications Administered Includes: Administered Medications from this encounter No Administered Medications Recorded Results Includes: Results discussed during this encounter No Results Recorded For Specified Dates History of Present Illness Includes: History of Present Illness from this encounter No History of Present Illness Recorded Social History No Social History Recorded - Smoking Status Unknown Medical History Includes: Medical History addressed during this encounter No Medical History Recorded Family History Includes: Family History addressed during this encounter No Family History Recorded Review of Systems Includes: Review of Systems from this encounter No Review of Systems Recorded Mental Status Includes: Mental Status from this encounter No Mental Status Recorded Functional Status Includes: Functional Status from this encounter No Functional Status Recorded Physical Exam Includes: Physical Exam from this encounter No Physical Exam Recorded Allergies Includes: Active Allergies No Known Allergies Encounters Encounter Provider Location Date Check-In Time Check-Out Time Diagnosis NO SHOW [facility] 02/10/2023 10:23AM 11:59PM Insurance Includes: Active Insurance Policies Plan Name Member ID Group # Subscriber Relationship Effect yolanda Dates - [facility] [id number] [address] LEON Clinical Notes Includes: Clinical Notes from this encounter No Clinical Notes Recorded
--- OUTSIDE RECORDS SUMMARY | 2024-07-19 16:18 | XMS_ITS ---
Care Plan - [facility] Created on: July 19, 2024 RICHARD DE LEON : 2000 Sex: Female Author Organization [facility] Address [address] [place] [address] Phone Care Team Providers Care Graduate Teaching Assistant Name Role Phone CLIFTON MAGANA, JUMANA Reed Unavailable [phone]
--- OUTSIDE RECORDS SUMMARY | 2024-07-19 16:19 | XMS_ITS ---
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 08/13/2022 XOCHITL OQUENDO RN [facility] Active Last Documented On 3 10:32AM ; [facility] Plan of Treatment Findings Encounter Date Ordered Clinical summary pro vided to patient WELL WOMAN - ESTABLISHED PT with XOCHITL OQUENDO RN [facility] 02/06/2022 Last Documented On 2 12:20PM ; [facility] Ordered Clinical summary pro vided to patient ANNUAL CHEMISTRY ACCOUNT MANAGER EXAM with XOCHITL OQUENDO RN [facility] 03/21/2020 Last Documented On 0 10:31AM ; [facility] Ordered Clinical summary pro vided to patient 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 MACHINE OPERATOR EXAM with XOCHITL OQUENDO RN [facility] 04/20/2019 Last Documented On 9 10:33AM ; [facility] Ordered Clinical summary pro vided to patient CORE MACHINE OPERATOR EXAM with XOCHITL OQUENDO RN [facility] 03/17/2018 Last Documented On 8 9:32AM ; [facility] Ordered Clinical summary pro vided to patient MED CHECK with XOCHITL OQUENDO RN [facility] 05/28/2017 Last Documented On 7 2:55PM ; [facility] Ordered Clinical summary pro vided to patient PROCEDURE OFFICE with XOCHITL OQUENDO RN GUI[facility] 03/07/2017 Last Documented On 7 3:11PM ; [facility] Ordered Clinical summary pro vided to patient NEW CORE MACHINE OPERATOR EXAM with XOCHITL OQUENDO RN [facility] 02/26/2017 Last Documented On 7 9:53AM ; [facility] Instructions to patient Instructions for patient : K eep the area around the vulva dry. Allow the area to have exposure to air. Avoid irritants such as fabric softeners and perfumed soaps.~ Last Documented On 3 11:31AM ; [facility] Instructions for patient ER if bleeding through reg. sized pad/tampon < 1 hour Last Documented On 3 11:07AM ; [facility] Instructions for patient ER if dizzy, vomiting or light-headed due to heavy bleeding Last Documented On 3 11:07AM ; [facility] Return to the clinic if cond ition worsens or new symptoms arise Last Documented On 3 11:08AM ; [facility] Instructions for patient : B reast Self Exam discussed and technique reviewed Last Documented On 2 10:58AM ; [facility] Use a condom during sexual i ntercourse Last Documented On 2 10:58AM ; [facility] Instructed to call if excess yolanda bleeding or abdominal/pelvic pain Last Documented On 2 10:58AM ; [facility] Recommend diet and exercise at least 30 min three times per week Last Documented On 2 10:58AM ; [facility] Instructions for patient : K eep the area around the vulva dry. Allow the area to have exposure to air. Avoid irritants such as fabric softeners and perfumed soaps.~ Last Documented On 1 2:57PM ; [facility] Return to the clinic if cond ition worsens or new symptoms arise pt. declines any STD serology Last Documented On 1 2:59PM ; [facility] Instructions for patient : B reast Self Exam discussed and technique reviewed Last Documented On 0 10:26AM ; [facility] Use a condom during sexual i ntercourse Last Documented On 0 10:26AM ; [facility] Instructed to call if excess yolanda bleeding or abdominal/pelvic pain Last Documented On 0 10:26AM ; [facility] Recommend diet and exercise at least 30 min three times per week Last Documented On 0 10:26AM ; [facility] Instructions for patient : B reast Self Exam discussed and technique reviewed Last Documented On 9 10:22AM ; [facility] Use a condom during sexual i ntercourse Last Documented On 9 10:22AM ; [facility] Instructed to call if excess yolanda bleeding or abdominal/pelvic pain Last Documented On 9 10:22AM ; [facility] Recommend diet and exercise at least 30 min three times per week Last Documented On 9 10:22AM ; [facility] Instructions for patient : B reast Self Exam discussed and technique reviewed Last Documented On 8 9:08AM ; [facility] Use a condom during sexual i ntercourse Last Documented On 8 9:08AM ; [facility] Instructed to call if excess yolanda bleeding or abdominal/pelvic pain Last Documented On 8 9:08AM ; [facility] Recommend diet and exercise at least 30 min three times per week Last Documented On 8 9:08AM ; [facility] Instructions for patient : B reast Self Exam discussed and technique reviewed Last Documented On 7 8:59AM ; [facility] Use a condom during sexual i ntercourse Last Documented On 7 8:59AM ; [facility] Instructed to call if excess yolanda bleeding or abdominal/pelvic pain Last Documented On 7 8:59AM ; [facility] Recommend diet and exercise at least 30 min three times per week Last Documented On 7 8:59AM ; [facility] Education and Decision Aids were provided during visit for: Patient counseling :to consi darion pelvic U/S if pelvic pain persists despite analgesics Last Documented On 3 11:31AM ; [facility] Patient counseling : STD pre vention. I discussed with the patient that condoms can reduce the chance of getting an STD but not eliminate it. Increased exposure from multiple sex partners also discussed Last Documented On 3 11:08AM ; [facility] Patient education RE: yeni guan signals associated with hormonal contraceptive use including abdominal, chest, or leg pain, headaches or visual disturbances Last Documented On 2 10:58AM ; [facility] Patient Education: Daily porter cium and vitamin D Last Documented On 2 10:58AM ; [facility] Patient counseling : STD pre vention. I discussed with the patient that condoms can reduce the chance of getting an STD but not eliminate it. Increased exposure from multiple sex partners also discussed Last Documented On 1 2:57PM ; [facility] Discussed smoking and drug u se Last Documented On 0 10:26AM ; [facility] Patient education RE: warnin g signals associated with hormonal contraceptive use including abdominal, chest, or leg pain, headaches or visual disturbances Last Documented On 0 10:26AM ; [facility] Patient Education: Daily porter cium and vitamin D Last Documented On 0 10:26AM ; [facility] Patient counseling : Use of contraceptives discussed in detail including rare occurrence of heart attack, stroke, and leg clots. Patient understands that smoking increases the risk of serious side effects with any steroid-based contraceptive method Last Documented On 0 2:19PM ; [facility] Patient education RE: warnin g signals associated with hormonal contraceptive use including abdominal, chest, or leg pain, headaches or visual disturbances Last Documented On 9 10:22AM ; [facility] Patient Education: Daily porter cium and vitamin D Last Documented On 9 10:22AM ; [facility] Patient education RE: warnin g signals associated with hormonal contraceptive use including abdominal, chest, or leg pain, headaches or visual disturbances Last Documented On 8 9:08AM ; [facility] Patient Education: Daily porter cium and vitamin D Last Documented On 8 9:08AM ; [facility] Patient counseling : Use of contraceptives discussed in detail including rare occurrence of heart attack, stroke, and leg clots. Patient understands that smoking increases the risk of serious side effects with any steroid-based contraceptive method Last Documented On 7 2:30PM ; [facility] Discussed smoking and drug u se Last Documented On 7 8:59AM ; [facility] Patient education RE: warnin g signals associated with hormonal contraceptive use including abdominal, chest, or leg pain, headaches or visual disturbances Last Documented On 7 8:59AM ; [facility] Inquiry and counseling about contraceptive practices Last Documented On 7 9:46AM ; [facility] Patient Education: Daily porter cium and vitamin D Last Documented On 7 8:59AM ; [facility] Candidiasis Vulvovaginitis I nformation Sheet Given vaginal hygiene review Last Documented On 7 9:48AM ; [facility] control consent review ed and signed Last Documented On 7 8:59AM ; [facility] Assessments Includes: Assessments for all patient encounters Findings Encounter Date Vaginitis PROBLEM VISIT with XOCHITL OQUENDO RN [facility] 08/29/2022 Last Documented On 3 11:32AM ; [facility] Cervicitis r/o infection PROBLEM VISIT with FACUNDO OQUENDO RN [facility] 08/13/2022 Last Documented On 3 11:22AM ; [facility] Classic migraine (with aura) without intractable migraine without status migrainosus PROBLEM VISIT with XOCHITL OQUENDO RN [facility] 08/13/2022 Last Documented On 3 11:22AM ; [facility] Female pelvic pain PROBLEM VISIT with XOCHITL CLARK RN [facility] 08/13/2022 Last Documented On 3 11:22AM ; [facility] Female pelvic pain WELL WOMAN - ESTABLI SHED PT with XOCHITL OQUENDO RN GUILLERMO 02/06/2022 Last Documented On 2 12:20PM ; [facility] Routine gynecological exam w ith abnormal findings WELL WOMAN - ESTABLISHED PT with XOCHITL CHA 02/06/2022 Last Documented On 2 12:20PM ; [facility] Screen malignant neoplasm cervix WELL WO MAN - ESTABLISHED PT with XOCHITL OQUENDO RN [facility] 02/06/2022 Last Documented On 2 12:20PM ; [facility] Vaginitis CHART UPDATE with XOCHITL CHA 07/21/2020 Last Documented On 1 11:52AM ; [facility] Vaginitis r/o trichomonas PROBLEM VISIT with BENNY OQUENDO RN [facility] 07/18/2020 Last Documented On 1 3:06PM ; [facility] NORMAL FEMALE EXAM ANNUAL CHEMISTRY ACCOUNT MANAGER EXAM with XOCHITL OQUENDO RN [facility] 03/21/2020 Last Documented On 0 10:31AM ; [facility] Encounter for contraceptive surveillance, unspecified MED CHECK with XOCHITL OQUENDO RN [facility] 08/16/2019 Last Documented On 0 2:30PM ; [facility] NORMAL FEMALE EXAM CORE MACHINE OPERATOR EXAM with XOCHITL Rodriguez [facility] 04/20/2019 Last Documented On 9 10:33AM ; [facility] NORMAL FEMALE EXAM CORE MACHINE OPERATOR EXAM with XOCHITL Rodriguez [facility] 03/17/2018 Last Documented On 8 9:32AM ; [facility] Encounter for contraceptive surveillance, unspecified MED CHECK with XOCHITL OQUENDO RN [facility] 05/28/2017 Last Documented On 7 2:55PM ; [facility] Encounter for implantable reed bdermal contraceptive PROCEDURE OFFICE with XOCHITL OQUENDO RN [facility] 03/07/2017 Last Documented On 7 3:11PM ; [facility] Contraceptive management NEW CORE MACHINE OPERATOR EXAM with XOCHITL OQUENDO RN [facility] 02/26/2017 Last Documented On 7 9:53AM ; [facility] NORMAL FEMALE EXAM NEW CORE MACHINE OPERATOR EXAM with XOCHITL STOVER RN [facility] 02/26/2017 Last Documented On 7 9:53AM ; [facility] Vaginitis NEW CORE MACHINE OPERATOR EXAM with XOCHITL OQUENDO RN [facility] 02/26/2017 Last Documented On 7 9:53AM ; [facility] Instructions Includes: Instructions for all patient encounters Instructions to patient Instructions for patient : K eep the area around the vulva dry. Allow the area to have exposure to air. Avoid irritants such as fabric softeners and perfumed soaps.~ Last Documented On 3 11:31AM ; [facility] Instructions for patient ER if bleeding through reg. sized pad/tampon < 1 hour Last Documented On 3 11:07AM ; [facility] Instructions for patient ER if dizzy, vomiting or light-headed due to heavy bleeding Last Documented On 3 11:07AM ; [facility] Return to the clinic if cond ition worsens or new symptoms arise Last Documented On 3 11:08AM ; [facility] Instructions for patient : B reast Self Exam discussed and technique reviewed Last Documented On 2 10:58AM ; [facility] Use a condom during sexual i ntercourse Last Documented On 2 10:58AM ; [facility] Instructed to call if excess yolanda bleeding or abdominal/pelvic pain Last Documented On 2 10:58AM ; [facility] Recommend diet and exercise at least 30 min three times per week Last Documented On 2 10:58AM ; [facility] Instructions for patient : K eep the area around the vulva dry. Allow the area to have exposure to air. Avoid irritants such as fabric softeners and perfumed soaps.~ Last Documented On 1 2:57PM ; [facility] Return to the clinic if cond ition worsens or new symptoms arise pt. declines any STD serology Last Documented On 1 2:59PM ; [facility] Instructions for patient : B reast Self Exam discussed and technique reviewed Last Documented On 0 10:26AM ; [facility] Use a condom during sexual i ntercourse Last Documented On 0 10:26AM ; [facility] Instructed to call if excess yolanda bleeding or abdominal/pelvic pain Last Documented On 0 10:26AM ; [facility] Recommend diet and exercise at least 30 min three times per week Last Documented On 0 10:26AM ; [facility] Instructions for patient : B reast Self Exam discussed and technique reviewed Last Documented On 9 10:22AM ; [facility] Use a condom during sexual i ntercourse Last Documented On 9 10:22AM ; [facility] Instructed to call if excess yolanda bleeding or abdominal/pelvic pain Last Documented On 9 10:22AM ; [facility] Recommend diet and exercise at least 30 min three times per week Last Documented On 9 10:22AM ; [facility] Instructions for patient : B reast Self Exam discussed and technique reviewed Last Documented On 8 9:08AM ; [facility] Use a condom during sexual i ntercourse Last Documented On 8 9:08AM ; [facility] Instructed to call if excess yolanda bleeding or abdominal/pelvic pain Last Documented On 8 9:08AM ; [facility] Recommend diet and exercise at least 30 min three times per week Last Documented On 8 9:08AM ; [facility] Instructions for patient : B reast Self Exam discussed and technique reviewed Last Documented On 7 8:59AM ; [facility] Use a condom during sexual i ntercourse Last Documented On 7 8:59AM ; [facility] Instructed to call if excess yolanda bleeding or abdominal/pelvic pain Last Documented On 7 8:59AM ; [facility] Recommend diet and exercise at least 30 min three times per week Last Documented On 7 8:59AM ; [facility] Education and Decision Aids were provided during visit for: Patient counseling :to consi darion pelvic U/S if pelvic pain persists despite analgesics Last Documented On 3 11:31AM ; [facility] Patient counseling : STD pre vention. I discussed with the patient that condoms can reduce the chance of getting an STD but not eliminate it. Increased exposure from multiple sex partners also discussed Last Documented On 3 11:08AM ; [facility] Patient education RE: yeni guan signals associated with hormonal contraceptive use including abdominal, chest, or leg pain, headaches or visual disturbances Last Documented On 2 10:58AM ; [facility] Patient Education: Daily porter cium and vitamin D Last Documented On 2 10:58AM ; [facility] Patient counseling : STD pre vention. I discussed with the patient that condoms can reduce the chance of getting an STD but not eliminate it. Increased exposure from multiple sex partners also discussed Last Documented On 1 2:57PM ; [facility] Discussed smoking and drug u se Last Documented On 0 10:26AM ; [facility] Patient education RE: warnin g signals associated with hormonal contraceptive use including abdominal, chest, or leg pain, headaches or visual disturbances Last Documented On 0 10:26AM ; [facility] Patient Education: Daily porter cium and vitamin D Last Documented On 0 10:26AM ; [facility] Patient counseling : Use of contraceptives discussed in detail including rare occurrence of heart attack, stroke, and leg clots. Patient understands that smoking increases the risk of serious side effects with any steroid-based contraceptive method Last Documented On 0 2:19PM ; [facility] Patient education RE: warnin g signals associated with hormonal contraceptive use including abdominal, chest, or leg pain, headaches or visual disturbances Last Documented On 9 10:22AM ; [facility] Patient Education: Daily porter cium and vitamin D Last Documented On 9 10:22AM ; [facility] Patient education RE: warnin g signals associated with hormonal contraceptive use including abdominal, chest, or leg pain, headaches or visual disturbances Last Documented On 8 9:08AM ; [facility] Patient Education: Daily porter cium and vitamin D Last Documented On 8 9:08AM ; [facility] Patient counseling : Use of contraceptives discussed in detail including rare occurrence of heart attack, stroke, and leg clots. Patient understands that smoking increases the risk of serious side effects with any steroid-based contraceptive method Last Documented On 7 2:30PM ; [facility] Discussed smoking and drug u se Last Documented On 7 8:59AM ; [facility] Patient education RE: warnin g signals associated with hormonal contraceptive use including abdominal, chest, or leg pain, headaches or visual disturbances Last Documented On 7 8:59AM ; [facility] Inquiry and counseling about contraceptive practices Last Documented On 7 9:46AM ; [facility] Patient Education: Daily porter cium and vitamin D Last Documented On 7 8:59AM ; [facility] Candidiasis Vulvovaginitis I nformation Sheet Given vaginal hygiene review Last Documented On 7 9:48AM ; [facility] control consent review ed and signed Last Documented On 7 8:59AM ; [facility] Medical Equipment - Implanted Devices Includes: Current and historical Devices No Medical Equipment Recorded Medications Includes: Current and historical Medications Past Medications on file Fluconazole 150 MG Oral Tablet 08/29/2022 - 08/31/2022 Provider: XOCHITL HEATON Diagnosis: Acute vaginitis 1 daily Pt. is to take 1 now and then repeat in 3 days Last Documented On 3 11:27AM By XOCHITL OROURKE ; [facility] Ibuprofen 800 MG Oral Tablet 08/29/2022 - 09/19/2022 Provider: XOCHITL HEATON Diagnosis: Dysmenorrhea, unspecified One tablet three times a day Last Documented On 3 11:43AM By XOCHITL OROURKE ; [facility] Azithromycin 500 MG Oral Tablet 08/13/2022 - 08/14/2022 Provider: XOCHITL HEATON Diagnosis: Inflammatory dis ease of cervix uteri as directed 2 TABLETS NOW Last Documented On 3 10:34AM By XOCHITL OROURKE ; [facility] Condoms Miscellaneous 08/13/2022 - 08/23/2022 Provider: XOCHITL HEATON Diagnosis: Encounter for ot h general cnsl and advice on contraception as directed Last Documented On 3 10:47AM By XOCHITL OROURKE ; [facility] Levora 0.15/30 (28) 0.15-30 MG-MCG Oral Tablet 02/06/2022 - 08/13/2022 Provider: XOCHITL CHA BC Diagnosis: Encounter for surveillance of contraceptive pills One tablet daily Last Documented On 3 11:10AM By XOCHITL OROURKE ; [facility] Clindamycin HCl 300 MG Oral Capsule 07/21/2020 - 07/28/2020 Provider: XOCHITL HEATON Diagnosis: Acute vaginitis One tablet twice a day Last Documented On 1 11:53AM By XOCHITL OROURKE ; [facility] metroNIDAZOLE 500 MG Oral Tablet 07/18/2020 - 07/19/2020 Provider: XOCHITL CHA BC Diagnosis: Acute vaginitis as directed ALL 4 TABS X 1 D OSE WITH FOOD ETOH WARNING X 48 HOURS Last Documented On 1 2:41PM By XOCHITL OROURKE ; [facility] Fluconazole 150 MG Oral Tablet 07/05/2020 - 07/07/2020 Provider: XOCHITL CHA BC Diagnosis: Acute vaginitis 1 daily Pt. is to take 1 now and then repeat in 3 days Last Documented On 1 8:19AM By XOCHITL OROURKE ; [facility] Levora 0.15/30 (28) 0.15-30 MG-MCG Oral Tablet 03/21/2020 - 02/06/2022 Provider: XOCHITL OQUENDO RN [facility] BC Diagnosis: Encounter for surveillance of contraceptive pills One tablet daily Last Documented On 2 11:19AM By XOCHITL OROURKE ; [facility] NuvaRing 0.12-0.015 MG/24HR Vaginal Ring 08/24/2019 - 03/21/2020 Provider: XOCHITL OQUENDO RN GUILLERMO BC Diagnosis: Encounter for in itial prescription of vagnl ring as directed insert ring into vagina first friday after menses begins Last Documented On 0 10:09AM By DEEPIKA ANDRADE LPN ; [facility] NuvaRing 0.12-0.015 MG/24HR Vaginal Ring 08/16/2019 - 03/21/2020 Provider: XOCHITL OQUENDO RN GUILL[facility]MO BC Diagnosis: Encounter for surveillance of contraceptives, unspecified as directed insert ring after menses begins and leave in 21 days, remove for 7 days and repeat Last Documented On 0 10:09AM By DEEPIKA ANDRADE LPN ; [facility] NuvaRing 0.12-0.015 MG/24HR Vaginal Ring 07/15/2019 - 09/09/2019 Provider: XOCHITL OQUENDO RN GUILLERMO BC Diagnosis: Encounter for in itial prescription of vagnl ring as directed INSERT RING IN V AGINA FIRST FRIDAY AFTER MENSES BEGINS REMOVE RING AFTER 21 DAYS/3WEEKS REINSERT NEW RING DAY Friday Last Documented On 0 9:52AM By XOCHITL OROURKE ; [facility] NuvaRing 0.12-0.015 MG/24HR Vaginal Ring 04/20/2019 - 07/15/2019 Provider: XOCHITL CHA BC Diagnosis: Encounter for in itial prescription of vagnl ring as directed INSERT RING IN V AGINA FIRST FRIDAY AFTER MENSES BEGINS REMOVE RING AFTER 21 DAYS/3WEEKS REINSERT NEW RING DAY Friday Last Documented On 0 9:48AM By XOCHITL OROURKE ; [facility] NuvaRing 0.12-0.015 MG/24HR Vaginal Ring 04/20/2019 - 08/24/2019 Provider: XOCHITL CHA BC Diagnosis: Encounter for in itial prescription of vagnl ring as directed insert ring into vagina first friday after menses begins Last Documented On 0 11:02AM By XOCHITL MORALES ; [facility] Condoms Miscellaneous 04/20/2019 - 05/02/2019 Provider: XOCHITL CHA BC Diagnosis: Encounter for surveillance of contraceptives, unspecified as directed Last Documented On 9 10:33AM By XOCHITL OROURKE ; [facility] Levora 0.15/30 (28) 0.15-30 MG-MCG Oral Tablet 03/12/2019 - 04/20/2019 Provider: JUMANA Pina Diagnosis: Encounter for surveillance of contraceptives, unspecified One tablet daily Last Documented On 9 10:22AM By XOCHITL MORALES ; [facility] Levora 0.15/30 (28) 0.15-30MG-MCG Oral Tablet 03/17/2018 - 03/12/2019 Provider: XOCHITL OQUENDO RN GUILLERMO BC Diagnosis: Encounter for surveillance of contraceptives, unspecified One tablet daily TAKE DIR ECTED START 1ST PACK FRIDAY AFTER NEXT MENSES Last Documented On 03/12/2019 4:27PM By JUMANA LAZO MD ; [facility] Terconazole 0.8% Vaginal Cream 12/29/2017 - 01/01/2018 Provider: XOCHITL OQUENDO RN GUILLERMO BC Diagnosis: Acute vaginitis USE DIRECTED 1 ap in vaga delores every night x 3 apply bid to external genitals Last Documented On 8 3:53PM By XOCHITL OROURKE ; [facility] Levora 0.15/30 (28) 0.15-30MG-MCG Oral Tablet 08/22/2017 - 03/17/2018 Provider: XOCHITL CHA Diagnosis: Encounter for surveillance of contraceptives, unspecified One tablet daily TAKE DIR ECTED START 1ST PACK FRIDAY AFTER NEXT MENSES Last Documented On 8 9:12AM By XOCHITL OROURKE ; [facility] Levora 0.15/30 (28) 0.15-30MG-MCG Oral Tablet 05/28/2017 - 08/22/2017 Provider: XOCHITL CHA Diagnosis: Encounter for surveillance of contraceptives, unspecified One tablet daily TAKE DIR ECTED START 1ST PACK FRIDAY AFTER NEXT MENSES Last Documented On 8 11:46AM By XOCHITL OROURKE ; [facility] Loestrin Fe 1/20 1-20MG-MCG Oral Tablet 05/28/2017 - 0 08/22/2017 Provider: Diagnosis: Last Documented On 8 11:44AM By XOCHITL OROURKE ; [facility] Naproxen 500MG Oral Tablet 03/07/2017 - 03/12/2017 Provider: XOCHITL OQUENDO RN GUILLERMO Diagnosis: Encounter for reed rveillance of other contraceptives One tablet twice a day USE A S DIRECTED W/FOOD DON'T EXCEED 2 IN 24 HOURS Last Documented On 7 3:12PM By XOCHITL OROURKE ; [facility] Loestrin 1/20 (21) 1-20MG-MCG Oral Tablet 02/28/2017 - 05/23/2017 Provider: XOCHITL OQUENDO RN GUILLERMO Diagnosis: Encounter for ot h general cnsl and advice on contraception One tablet daily TAKE DIRECTED W/FOOD Last Documented On 7 2:24PM By XOCHITL OROURKE ; [facility] Lo Loestrin Fe 1 MG-10 MCG /10 MCG Oral Tablet 02/26/2017 - 02/28/2017 Provider: XOCHITL OQUENDO RN GUILLERMO BC Diagnosis: Encounter for ot h general cnsl and advice on contraception One tablet daily USE DIRECTED Last Documented On 7 2:16PM By XOCHITL CHA- ; [facility] Fluconazole 150MG Oral Tablet 02/26/2017 - 02/28/2017 Provider: XOCHITL HEATON Diagnosis: Acute vaginitis 1 daily Pt. is to take 1 now and then repeat in 3 days Last Documented On 7 9:53AM By XOCHITL OROURKE ; [facility] Nexplanon 68MG Subcutaneous Implant 02/07/2014 - 05/27 Provider: Diagnosis: Last Documented On 7 4:19PM By XOCHITL OROURKE ; [facility] Medications Administered Includes: Administered Medications in patient's chart No Administered Medications Recorded Results Includes: Results from 07/19/2023 through 07/19/2024 No Results Recorded For Specified Dates History of Present Illness History of Present Illness not supported for this document type No History of Present Illness Recorded Social History Description Last Updated Activities 02/06/2022 Last Documented On 2 12:20PM ; [facility] Alcohol use: 2 drinks or less per day no ne 02/06/2022 Last Documented On 2 12:20PM ; [facility] Current nonsmoker 02/06/2022 Last Documented On 2 12:20PM ; [facility] Currently in school 02/06/2022 Last Documented On 2 12:20PM ; [facility] Education history 02/06/2022 Last Documented On 2 12:20PM ; [facility] Educational level 02/06/2022 Last Documented On 2 12:20PM ; [facility] No consumption of alcohol 02/06/2022 Last Documented On 2 12:20PM ; [facility] Non-smoker 02/06/2022 Last Documented On 2 12:20PM ; [facility] Not a smoker 02/06/2022 Last Documented On 2 12:20PM ; [facility] Personal history mgr [facility] [place] 11/2021 Last Documented On 2 12:20PM ; [facility] Sexually active 02/06/2022 Last Documented On 2 12:20PM ; [facility] Single 02/06/2022 Last Documented On 2 12:20PM ; [facility] Smoking status : Never smoker 02/06/2022 Last Documented On 2 12:20PM ; [facility] Not using alcohol 02/06/2022 Last Documented On 2 12:20PM ; [facility] Not using drugs 02/06/2022 Last Documented On 2 12:20PM ; [facility] Sexually active with 1 partners in the l ast year 02/06/2022 Last Documented On 2 12:20PM ; [facility] Tobacco non-user 02/06/2022 Last Documented On 2 12:20PM ; [facility] Medical History Includes: Medical History in patient's chart Description Last Updated Sexually active last unprote cted 5 weeks ago, denies any sexual activity since last visit 08/29/2022 Last Documented On 3 11:32AM ; [facility] History of vaginitis 08/29/2022 Last Documented On 3 11:32AM ; [facility] LMP: 08/13/2022 08/29/2022 Last Documented On 3 11:32AM ; [facility] Contraception: OCPs 08/13/2022 Last Documented On 3 11:22AM ; [facility] Primary Care Provider: In [place], unsure of name 02/06/2022 Last Documented On 2 12:20PM ; [facility] 0 03/17/2018 Last Documented On 8 9:32AM ; [facility] Family History Includes: Family History in patient's chart Description Last Updated Family history of diabetes mellitus muro rnal aunt and cousin 02/26/2017 Last Documented On 7 9:53AM ; [facility] Review of Systems Review of Systems not supported for this document type No Review of Systems Recorded Mental Status No Mental Status Recorded Functional Status No Functional Status Recorded Physical Exam Physical Exam not supported for this document type No Physical Exam Recorded Allergies Includes: Active, inactive, and resolved Allergies No Known Allergies Insurance Includes: Active Insurance Policies Plan Name Member ID Group # Subscriber Relationship Effect yolanda Dates 1 - [facility] [id number] CHRISTINE DE LEON Clinical Notes Includes: Signed Clinical Notes starting from 06/21/2022 No Clinical Notes Recorded
--- OUTSIDE RECORDS SUMMARY | 2024-07-19 16:19 | XMS_ITS ---
Care Plan - [facility] Created on: July 19, 2024 RICHARD DE LEON : 2000 Sex: Female Author Organization [facility] Address [address] [place] [address] Phone Care Team Providers Care Inspector Publications Name Role Phone CLIFTON MAGANA, JUMANA Reed Unavailable [phone]
--- OUTSIDE RECORDS SUMMARY | 2024-07-19 16:19 | XMS_ITS | Clinical Summary ---
Author Organization [facility] Address [address] [place] [address] Phone Care Team Providers Care Airline Pilot/First Officer Name Role Phone JUMANA LAZO MD Unavailable [phone] Reason for Visit and Chief Complaint The Chief Complaint is: Pt here for STD testing, pt also complains of pelvic pain, not as bad as yesterday Problems Includes: Problems addressed during this encounter and other active Problems Current Visit Onset Date Resolved Date Provider Conditio n Status Classic Migraine with Aura Without Intractable Migraine Without Status Migrainosus 08/13/2022 XOCHITL OQUENDO RN [facility] BC Active Last Documented On 3 10:32AM ; [facility] Plan of Treatment Instructions to patient Instructions for patient ER if bleeding through reg. sized pad/tampon < 1 hour Last Documented On 3 11:07AM ; [facility] Instructions for patient ER if dizzy, vomiting or light-headed due to heavy bleeding Last Documented On 3 11:07AM ; [facility] Return to the clinic if cond ition worsens or new symptoms arise Last Documented On 3 11:08AM ; [facility] Education and Decision Aids were provided during visit for: Patient counseling : STD pre vention. I discussed with the patient that condoms can reduce the chance of getting an STD but not eliminate it. Increased exposure from multiple sex partners also discussed Last Documented On 3 11:08AM ; [facility] Assessments Includes: Assessments from this encounter Findings - [N72 - Inflammatory disease of cervix uteri] Cervicitis r/o infection - Last Documented On 08/13/2022 11:22AM ; [facility] - [R10.2 - Pelvic and perineal pain] Female pelvic pain - Last Documented On 08/13/2022 11:22AM ; [facility] - [G43.109 - Migraine with aura, not intractable, without status migrainosus] Classic migraine (with aura) without intractable migraine without status migrainosus - Last Documented On 08/13/2022 11:22AM ; [facility] Instructions Includes: Instructions from this encounter Instructions to patient Instructions for patient ER if bleeding through reg. sized pad/tampon < 1 hour Last Documented On 3 11:07AM ; [facility] Instructions for patient ER if dizzy, vomiting or light-headed due to heavy bleeding Last Documented On 3 11:07AM ; [facility] Return to the clinic if cond ition worsens or new symptoms arise Last Documented On 3 11:08AM ; [facility] Education and Decision Aids were provided during visit for: Patient counseling : STD pre vention. I discussed with the patient that condoms can reduce the chance of getting an STD but not eliminate it. Increased exposure from multiple sex partners also discussed Last Documented On 11:08AM ; [facility] Medical Equipment - Implanted Devices Includes: Current Devices No Medical Equipment Recorded Medications Includes: Medications discussed during this encounter and other current Medications Discontinued / Stopped on this date XOCHITL CHA on 02/06/2022 Levora 0.15/30 (28) 0.15-30 MG-MCG Oral Tablet Provider: XOCHITL DEGROOT P Diagnosis: Encounter for reed rveillance of contraceptive pills Last Documented On 3 11:10AM By XOCHITL OROURKE ; [facility] New / Renewed during this visit XOCHITL HEATON on 08/13/2022 Azithromycin 500 MG Oral Tablet Provider: XOCHITL HEATON 1 day supply: 2 tablet, 0 refills Diagnosis: Inflammatory disease of cervix uteri as directed 2 TABLETS NOW Pharmacy: [facility]) - [address] , [facility], [phone] - Last Documented On 3 10:34AM By XOCHITL OROURKE ; [facility] Condoms Miscellaneous Provider: XOCHITL HEATON 10 day supply: 5 each, 0 refills Diagnosis: Encounter for oth general cnsl and advice on contraception as directed Last Documented On 3 10:47AM By XOCHITL OROURKE ; [facility] Past Medications on file Fluconazole 150 MG Oral Tablet 08/29/2022 - 08/31/2022 Provider: XOCHITL CHA Diagnosis: Acute vaginitis 1 daily Pt. is to take 1 now and then repeat in 3 days Last Documented On 3 11:27AM By XOCHITL OROURKE ; [facility] Ibuprofen 800 MG Oral Tablet 08/29/2022 - 09/19/2022 Provider: XOCHITL OQUENDO RN GUILLERMO Diagnosis: Dysmenorrhea, unspecified One tablet three times a day Last Documented On 3 11:43AM By XOCHITL OROURKE ; [facility] Clindamycin HCl 300 MG Oral Capsule 07/21/2020 - 07/28/2020 Provider: XOCHITL OQUENDO RN GUILLERMO Diagnosis: Acute vaginitis One tablet twice a day Last Documented On 1 11:53AM By XOCHITL OROURKE ; [facility] metroNIDAZOLE 500 MG Oral Tablet 07/18/2020 - 07/19/2020 Provider: XOCHITL CHA Diagnosis: Acute vaginitis as directed ALL 4 TABS X 1 D OSE WITH FOOD ETOH WARNING X 48 HOURS Last Documented On 1 2:41PM By XOCHITL OROURKE ; [facility] Fluconazole 150 MG Oral Tablet 07/05/2020 - 07/07/2020 Provider: XOCHITL CHA Diagnosis: Acute vaginitis 1 daily Pt. is to take 1 now and then repeat in 3 days Last Documented On 1 8:19AM By XOCHITL OROURKE ; [facility] NuvaRing 0.12-0.015 MG/24HR Vaginal Ring 07/15/2019 - 09/09/2019 Provider: XOCHITL OQUENDO RN GUILLERMO Diagnosis: Encounter for in itial prescription of vagnl ring as directed INSERT RING IN V AGINA FIRST FRIDAY AFTER MENSES BEGINS REMOVE RING AFTER 21 DAYS/3WEEKS REINSERT NEW RING DAY Friday Last Documented On 0 9:52AM By XOCHITL OROURKE ; [facility] Condoms Miscellaneous 04/20/2019 - 05/02/2019 Provider: XOCHITL HEATON Diagnosis: Encounter for surveillance of contraceptives, unspecified as directed Last Documented On 9 10:33AM By XOCHITL OROURKE ; [facility] Terconazole 0.8% Vaginal Cream 12/29/2017 - 01/01/2018 Provider: XOCHITL CHA BC Diagnosis: Acute vaginitis USE DIRECTED 1 ap in vaga delores every night x 3 apply bid to external genitals Last Documented On 8 3:53PM By XOCHITL OROURKE ; [facility] Naproxen 500MG Oral Tablet 03/07/2017 - 03/12/2017 Provider: XOCHITL HEATON Diagnosis: Encounter for reed rveillance of other contraceptives One tablet twice a day USE A S DIRECTED W/FOOD DON'T EXCEED 2 IN 24 HOURS Last Documented On 7 3:12PM By XOCHITL OROURKE ; [facility] Loestrin 1/20 (21) 1-20MG-MCG Oral Tablet 02/28/2017 - 05/23/2017 Provider: XOCHITL CHA Diagnosis: Encounter for ot h general cnsl and advice on contraception One tablet daily TAKE DIRECTED W/FOOD Last Documented On 7 2:24PM By XOCHITL OROURKE ; [facility] Fluconazole 150MG Oral Tablet 02/26/2017 - 02/28/2017 Provider: XOCHITL CHA Diagnosis: Acute vaginitis 1 daily Pt. is to take 1 now and then repeat in 3 days Last Documented On 7 9:53AM By XOCHITL OROURKE ; [facility] Medications Administered Includes: Administered Medications from this encounter No Administered Medications Recorded Vital Signs Includes: Vital Signs from this encounter Vital Name 08/13/2022 10:05A Blood Pressure Sitting L 110/70 BP Cuff Size Regular Temp-Temporal 98.1 Height (in) 60 Weight (lb) 113 Body Mass Index 22.1 Body Surface Area 1.5 Last Documented: On 08/13/2022 10:09A M ; [facility] Results Includes: Results discussed during this encounter No Results Recorded For Specified Dates History of Present Illness Includes: History of Present Illness from this encounter HPI - Allergy list reviewed - Medication list reviewed Pt reports intermittent cramping since 08/12/22, denies N/V/F. Last unprotected coitus 3 weeks ago, admits missing OCP last week. Pt declines any STD serology, and now reports she was diagnosed with migraines 2 years ago, and has loss of vision when headaches occur Social History No Social History Recorded - Smoking Status Unknown Procedures and Surgical History Includes: Procedures from this encounter Procedures Code Diagnosis Performing Provider Service L ocation Service Date evaluation of contraceptive history performed Pt informed d/t dx. of migraine w/aura she is not eleigible for any estrogen containing contraception d/t CV risks. Discusseed progestin only contraception, pt declines d/t hx. of DUB and ovarian cyst on Nexplanon. Pt declines Paragard insertion I don't want anything more in my body and will use condoms 100% for contraception Last Documented On 3 11:12AM ; [facility] education about contraception performed Last Documented On 3 11:09AM ; [facility] urinalysis was performed [id number] Last Documented On 3 11:07AM ; [facility] urine glucose negative Last Documented On 3 11:07AM ; [facility] urine protein negative Last Documented On 3 11:07AM ; [facility] an HCG test was negative [id number] Last Documented On 3 11:07AM ; [facility] urine leukocyte esterase [id number] Last Documented On 3 11:07AM ; [facility] urine nitrate negative Last Documented On 3 11:07AM ; [facility] normal urine ketones Last Documented On 3 11:07AM ; [facility] Medical History Includes: Medical History addressed during this encounter Description Last Updated LMP: 08/13/2022 Unsure of date. last unpr otected 3 weeks ago today 08/13/2022 Last Documented On 3 11:22AM ; [facility] Contraception: OCPs 08/13/2022 Last Documented On 3 11:22AM ; [facility] Sexually active last unprotected 3 weeks ago today 08/13/2022 Last Documented On 3 11:22AM ; [facility] Primary Care Provider: In [place], unsure of name 02/06/2022 Last Documented On 3 10:05AM ; [facility] 0 03/17/2018 Last Documented On 3 10:05AM ; [facility] Family History Includes: Family History addressed during this encounter Description Last Updated Family history of diabetes mellitus jina cortés aunt and cousin 02/26/2017 Last Documented On 3 10:05AM ; [facility] Review of Systems Includes: Review of Systems from this encounter Systemic: No fever and no chills. Head: No headache. Cardiovascular: No chest pain or discomfort. Pulmonary: No dyspnea. Gastrointestinal: No nausea, no vomiting, and no diarrhea. Genitourinary: No increase in urinary frequency. No dysuria. Mental Status Includes: Mental Status from this encounter No Mental Status Recorded Functional Status Includes: Functional Status from this encounter No Functional Status Recorded Physical Exam Includes: Physical Exam from this encounter Allergies Includes: Active Allergies No Known Allergies Encounters Encounter Provider Location Date Check-In Time Check-Out Time Diagnosis PROBLEM VISIT XOCHITL HEATON [facility] 08/14/19 23 10:02AM 10:46AM Cervicitis,Fema le Pelvic Pain,Classic Migraine with Aura Without Intractable Migraine Without Status Migrainosus Insurance Includes: Active Insurance Policies Plan Name Member ID Group # Subscriber Relationship Effect yolanda Dates 1 - [facility] [id number] CHRISTINE DE LEON Clinical Notes Includes: Clinical Notes from this encounter * Progress note Date Encounter Last Documented by 08/13/2022 PROBLEM VISIT Last documented on 08/13/2022; 11:22 AM, XOCHITL CHA ; [facility] Active Problems & Conditions - G43.109 - Classic Migraine W/ Aura W/o Intractable Migraine W/o Status Migrainosus Chief Complaint The Chief Complaint is: Pt here for STD testing, pt also complains of pelvic pain, not as bad as yesterday. History of Present Illness - Allergy list reviewed - Medication list reviewed Pt reports intermittent cramping since 08/12/22, denies N/V/F. Last unprotected coitus 3 weeks ago, admits missing OCP last week. Pt declines any STD serology, and now reports she was diagnosed with migraines 2 years ago, and has loss of vision when headaches occur Past Medical/Surgical History Other: Primary Care Provider: In [place], unsure of name Reported: LMP: 08/13/2022 Unsure of date. last unprotected 3 weeks ago today and Contraception: OCPs. : 0. Sexual: Sexually active last unprotected 3 weeks ago today. Allergies - No Known Allergies Family History Diabetes mellitus paternal aunt and cousin Review Of Systems Systemic: No fever and no chills. Head: No headache. Cardiovascular: No chest pain or discomfort. Pulmonary: No dyspnea. Gastrointestinal: No nausea, no vomiting, and no diarrhea. Genitourinary: No increase in urinary frequency. No dysuria. Physical Findings - Vitals taken 08/13/2022 10:05 am BP-Sitting L 110/70 mmHg BP Cuff Size Regular Temp-Temporal 98.1 F Height 60 in Weight 113 lbs Body Mass Index 22.1 kg/m2 Body Surface Area 1.5 m2 Lymph Nodes: - Normal. Abdomen: Palpation: - Abdominal non-tender. Genitalia: External: - Genitalia showed no abnormalities. Pelvic: - No ovarian mass. Vagina: - A vaginal discharge was observed small amount menses in vault. Cervix: - Showed no lesion cervical fragility noted with q tip. - Did not demonstrate pain elicited by motion. Uterus: - Not enlarged. - Not tender. Uterine Adnexae: - Uterine adnexa was not tender. Tests Urinalysis Was Performed: Urinalysis was performed. Urine protein negative, glucose negative, and nitrate negative. Urine leukocyte esterase. Laboratory-based Chemistry: Urine Tests: An HCG test was negative. Normal Examination: Normal urine ketones. Assessment - [N72 - Inflammatory disease of cervix uteri] Cervicitis r/o infection - [R10.2 - Pelvic and perineal pain] Female pelvic pain - [G43.109 - Migraine with aura, not intractable, without status migrainosus] Classic migraine (with aura) without intractable migraine without status migrainosus Therapy - Evaluation of contraceptive history performed Pt informed d/t dx. of migraine w/aura she is not eleigible for any estrogen containing contraception d/t CV risks. Discusseed progestin only contraception, pt declines d/t hx. of DUB and ovarian cyst on Nexplanon. Pt declines Paragard insertion I don't want anything more in my body and will use condoms 100% for contraception - Education about contraception performed Counseling/Education - Instructions for patient ER if bleeding through reg. sized pad/tampon < 1 hour - Instructions for patient ER if dizzy, vomiting or light-headed due to heavy bleeding - Return to the clinic if condition worsens or new symptoms arise - Patient counseling: STD prevention. I discussed with the patient that condoms can reduce the chance of getting an STD but not eliminate it. Increased exposure from multiple sex partners also discussed total time spent with exam and counseling 35 min. spent face to face with pt. Plan StartCited - Encounter for oth general cnsl and advice on contraception Condoms each as directed, 10 days, 0 refills EndCited StartCited - Inflammatory disease of cervix uteri Lab: BACTERIAL VAGINOSIS/VAGINITIS PANEL ( AFFIRM SWAB) Lab: [facility] Azithromycin 500 MG tablet as directed 2 TABLETS NOW, 1 days, 0 refills EndCited StartCited - Other PHY ORDER/COMMENT release for last 2 years PCP records regarding migraines thanks EndCited StartCited - Pelvic and perineal pain In office procedures/*Clia Waived Labs: Urinalysis, Urine Test EndCited Health Reminders - Assess BMI satisfied 08/13/2022.
--- OUTSIDE RECORDS SUMMARY | 2024-07-19 16:19 | XMS_ITS | Clinical Summary ---
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 is to take 1 now and then repeat in 3 days Last Documented On 3 11:27AM By XOCHITL OROURKE ; [facility] Ibuprofen 800 MG Oral Tablet 08/29/2022 - 09/19/2022 Provider: XOCHITL HEATON Diagnosis: Dysmenorrhea, unspecified One tablet three times a day Last Documented On 3 11:43AM By XOCHITL OROURKE ; [facility] Azithromycin 500 MG Oral Tablet 08/13/2022 - 08/14/2022 Provider: XOCHITL HEATON Diagnosis: Inflammatory dis ease of cervix uteri as directed 2 TABLETS NOW Last Documented On 3 10:34AM By XOCHITL OROURKE ; [facility] Condoms Miscellaneous 08/13/2022 - 08/23/2022 Provider: XOCHITL CHA BC Diagnosis: Encounter for ot h general cnsl and advice on contraception as directed Last Documented On 3 10:47AM By XOCHITL OROURKE ; [facility] Clindamycin HCl 300 MG Oral Capsule 07/21/2020 - 07/28/2020 Provider: XOCHITL CHA BC Diagnosis: Acute vaginitis One tablet twice a day Last Documented On 1 11:53AM By XOCHITL OROURKE ; [facility] metroNIDAZOLE 500 MG Oral Tablet 07/18/2020 - 07/19/2020 Provider: XOCHITL CHA BC Diagnosis: Acute vaginitis as directed ALL 4 TABS X 1 D OSE WITH FOOD ETOH WARNING X 48 HOURS Last Documented On 1 2:41PM By XOCHITL OROURKE ; [facility] Fluconazole 150 MG Oral Tablet 07/05/2020 - 07/07/2020 Provider: XOCHITL CHA BC Diagnosis: Acute vaginitis 1 daily Pt. is to take 1 now and then repeat in 3 days Last Documented On 1 8:19AM By XOCHITL OROURKE ; [facility] NuvaRing 0.12-0.015 MG/24HR Vaginal Ring 07/15/2019 - 09/09/2019 Provider: XOCHITL CHA BC Diagnosis: Encounter for in itial prescription of vagnl ring as directed INSERT RING IN V AGINA FIRST FRIDAY AFTER MENSES BEGINS REMOVE RING AFTER 21 DAYS/3WEEKS REINSERT NEW RING DAY Friday Last Documented On 0 9:52AM By XOCHITL OROURKE ; [facility] Condoms Miscellaneous 04/20/2019 - 05/02/2019 Provider: XOCHITL CHA BC Diagnosis: Encounter for surveillance of contraceptives, unspecified as directed Last Documented On 9 10:33AM By XOCHITL OROURKE ; [facility] Terconazole 0.8% Vaginal Cream 12/29/2017 - 01/01/2018 Provider: XOCHITL CHA BC Diagnosis: Acute vaginitis USE DIRECTED 1 ap in vaga [place] every night x 3 apply bid to external genitals Last Documented On 8 3:53PM By XOCHITL OROURKE ; [facility] Naproxen 500MG Oral Tablet 03/07/2017 - 03/12/2017 Provider: XOCHITL HEATON Diagnosis: Encounter for reed rveillance of other contraceptives One tablet twice a day USE A S DIRECTED W/FOOD DON'T EXCEED 2 IN 24 HOURS Last Documented On 7 3:12PM By XOCHITL OROURKE ; [facility] Loestrin 1/20 (21) 1-20MG-MCG Oral Tablet 02/28/2017 - 05/23/2017 Provider: XOCHITL HEATON Diagnosis: Encounter for ot h general cnsl and advice on contraception One tablet daily TAKE DIRECTED W/FOOD Last Documented On 7 2:24PM By XOCHITL OROURKE ; [facility] Fluconazole 150MG Oral Tablet 02/26/2017 - 02/28/2017 Provider: XOCHITL CHA Diagnosis: Acute vaginitis 1 daily Pt. is to take 1 now and then repeat in 3 days Last Documented On 7 9:53AM By XOCHITL OROURKE ; [facility] Medications Administered Includes: Administered Medications from this [...] addressed during this encounter Description Last Updated Sexually active last unprotected sex was months ago 08/29/2022 Last Documented On 3 9:54AM ; [facility] LMP: 01/31/2022 08/29/2022 Last Documented On 3 9:54AM ; [facility] Contraception: condoms 100% 08/13/2022 Last Documented On 3 9:54AM ; [facility] Primary Care Provider: In [place], unsure of name 02/06/2022 Last Documented On 3 9:54AM ; [facility] 0 03/17/2018 Last Documented On 3 9:54AM ; [facility] Family History Includes: Family History addressed during this encounter Description Last Updated Family history of diabetes mellitus jina cortés aunt and cousin 02/26/2017 Last Documented On 3 9:54AM ; [facility] Review of Systems Includes: Review of Systems [...] Location Date Check-In Time Check-Out Time Diagnosis * PHONE CALL XOCHITL CHA 08/12/2022 9:54AM 11:59PM Insurance Includes: Active Insurance Policies Plan Name Member ID Group # Subscriber Relationship Effect yolanda Dates 1 - [facility] [id number] CHRISTINE DE LEON Clinical Notes Includes: Clinical Notes from this encounter * Progress note Date Encounter Last Documented by 08/12/2022 * PHONE CALL Last documented on 08/12/2022; 10:11 AM, XOCHITL CHA ; [facility] Chief Complaint Phone Call - Chief Concern: Reason for call: Pt called asking for an apt for STD check. Offered apt for Friday, pt said Friday would work better for her. Offered apt for 10:00am tomorrow, as I was scheduling apt pt says well the thing is I don't know if I'm going to be able to do an exam because I am in pain. asked pt on a pain scale of 1-10 how bad is the pain, pt said about an 8 or 9, asked pt if the pain is on the outside or inside pt stated the inside. Pt said pain is not too bad if she is laying down. Informed pt that if she is in that much pain that she needs to go to ER. Pt said what are they going to do? Explained to pt that they can do the STD testing and possible U/S since she is in that much pain. Pt said can you just put me in for tomorrow and I will call my mom and tell her about going to the ER and see what she says. Scheduled apt, informed pt that if she comes in tomorrow in that much pain and cannot do the exam that [facility] might send her to the ER. Pt said okay. pt phone # for return call: [phone] Date/Initials: 08/12/2022 MY. Current Medication - Levora 0.15/30 (28) 0.15-30 MG-MCG Oral Tablet One tablet daily, 28 days, 12 refills Past Medical/Surgical History Other: Primary Care Provider: In [place], unsure of name Reported: LMP: 01/31/2022 and Contraception: condoms 100%. : 0. Sexual: Sexually active last unprotected sex was months ago. Allergies - No Known Allergies Family History Diabetes mellitus paternal aunt and cousin Plan StartCited - Other Y ORDER/COMMENT Agree w/plan of care, pt needs ER. If pain is that bad, she will be sent tomorrow. By protocols I will not be able to do an exam. Thanks EndCited
--- OUTSIDE RECORDS SUMMARY | 2024-07-19 16:19 | XMS_ITS | Clinical Summary ---
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
--- OUTSIDE RECORDS SUMMARY | 2024-07-19 16:19 | XMS_ITS | Clinical Summary ---
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 - Last Documented On 02/06/2022 12:20PM ; [facility] Instructions to patient Instructions for patient : B reast Self Exam discussed and technique reviewed Last Documented On 2 10:58AM ; [facility] Use a condom during sexual i ntercourse Last Documented On 2 10:58AM ; [facility] Instructed to call if excess yolanda bleeding or abdominal/pelvic pain Last Documented On 2 10:58AM ; [facility] Recommend diet and exercise at least 30 min three times per week Last Documented On 2 10:58AM ; [facility] Education and Decision Aids were provided during visit for: Patient education RE: yeni guan signals associated with hormonal contraceptive use including abdominal, chest, or leg pain, headaches or visual disturbances Last Documented On 2 10:58AM ; [facility] Patient Education: Daily porter cium and vitamin D Last Documented On 2 10:58AM ; [facility] Assessments Includes: Assessments from this encounter Findings - Routine gynecological exam with abnormal findings - Last Documented On 02/06/2022 12:20PM ; [facility] - Female pelvic pain - Last Documented On 02/06/2022 12:20PM ; [facility] - Screen malignant neoplasm cervix - Last Documented On 02/06/2022 12:20PM ; [facility] Instructions Includes: Instructions from this encounter Instructions to patient Instructions for patient : B reast Self Exam discussed and technique reviewed Last Documented On 2 10:58AM ; [facility] Use a condom during sexual i ntercourse Last Documented On 2 10:58AM ; [facility] Instructed to call if excess yloanda bleeding or abdominal/pelvic pain Last Documented On 2 10:58AM ; [facility] Recommend diet and exercise at least 30 min three times per week Last Documented On 2 10:58AM ; [facility] Education and Decision Aids were provided during visit for: Patient education RE: yeni guan signals associated with hormonal contraceptive use including abdominal, chest, or leg pain, headaches or visual disturbances Last Documented On 2 10:58AM ; [facility] Patient Education: Daily porter cium and vitamin D Last Documented On 2 10:58AM ; [facility] Medical Equipment - Implanted Devices Includes: Current Devices No Medical Equipment Recorded Medications Includes: Medications discussed during this encounter and other current Medications New / Renewed during this visit XOCHITL CHA BC on 02/06/2022 Levora 0.15/30 (28) 0.15-30 MG-MCG Oral Tablet Provider: XOCHITL DEGROOT P 28 day supply: 28 tablet, 12 refills Diagnosis: Encounter for surveillance o f contraceptive pills One tablet daily Pharmacy: [facility]) - [facility] , [facility], [phone] - Last Documented On 3 11:10AM By XOCHITL CHA- ; [facility] Past Medications on file Fluconazole 150 MG Oral Tablet 08/29/2022 - 08/31/2022 Provider: XOCHITL M AZRA RN WHNP BC Diagnosis: Acute vaginitis 1 daily Pt. is to take 1 now and then repeat in 3 days Last Documented On 3 11:27AM By XOCHITL OROURKE ; [facility] Ibuprofen 800 MG Oral Tablet 08/29/2022 - 09/19/2022 Provider: XOCHITL CHA Diagnosis: Dysmenorrhea, unspecified One tablet three times a day Last Documented On 3 11:43AM By XOCHITL OROURKE ; [facility] Azithromycin 500 MG Oral Tablet 08/13/2022 - 08/14/2022 Provider: XOCHITL CHA BC Diagnosis: Inflammatory dis ease of cervix uteri as directed 2 TABLETS NOW Last Documented On 3 10:34AM By XOCHITL OROURKE ; [facility] Condoms Miscellaneous 08/13/2022 - 08/23/2022 Provider: XOCHITL CHA Diagnosis: Encounter for ot h general cnsl and advice on contraception as directed Last Documented On 3 10:47AM By XOCHITL OROURKE ; [facility] Clindamycin HCl 300 MG Oral Capsule 07/21/2020 - 07/28/2020 Provider: XOCHITL CHA Diagnosis: Acute vaginitis One tablet twice a [...] On 1 8:19AM By XOCHITL OROURKE ; [facility] NuvaRing 0.12-0.015 MG/24HR Vaginal Ring 07/15/2019 - 09/09/2019 Provider: XOCHITL CHA BC Diagnosis: Encounter for in itial prescription of vagnl ring as directed INSERT RING IN V AGINA FIRST FRIDAY AFTER MENSES BEGINS REMOVE RING AFTER 21 DAYS/3WEEKS REINSERT NEW RING DAY Friday Last Documented On 0 9:52AM By XOCHITL OROURKE ; [facility] Condoms Miscellaneous 04/20/2019 - 05/02/2019 Provider: XOCHITL CHA BC Diagnosis: Encounter for surveillance of contraceptives, unspecified as directed Last Documented On 9 10:33AM By XOCHITL OROURKE ; [facility] Terconazole 0.8% Vaginal Cream 12/29/2017 - 01/01/2018 Provider: XOCHITL HEATON Diagnosis: Acute vaginitis USE DIRECTED 1 ap in vaga delores every night x 3 apply bid to external genitals Last Documented On 8 3:53PM By XOCHITL OROURKE ; [facility] Naproxen 500MG Oral Tablet 03/07/2017 - 03/12/2017 Provider: XOCHITL CHA Diagnosis: Encounter for reed rveillance of other contraceptives One tablet twice a day USE A S DIRECTED W/FOOD DON'T EXCEED 2 IN 24 HOURS Last Documented On 7 3:12PM By XOCHITL OROURKE ; [facility] Loestrin 1/20 (21) 1-20MG-MCG Oral Tablet 02/28/2017 - 05/23/2017 Provider: XOCHITL CHA Diagnosis: Encounter for ot h general cnsl and advice on contraception One tablet daily TAKE DIRECTED W/FOOD Last Documented On 7 2:24PM By XOCHITL OROURKE ; [facility] Fluconazole 150MG Oral Tablet 02/26/2017 - 02/28/2017 Provider: XOCHITL CHA Diagnosis: Acute vaginitis 1 daily Pt. is to take 1 now and then repeat in 3 days Last Documented On 7 9:53AM By XOCHITL OROURKE ; [facility] Medications Administered Includes: Administered Medications from this encounter No Administered Medications Recorded Vital Signs Includes: Vital Signs from this encounter Vital Name 02/06/2022 10:45A Blood Pressure Sitting L 100/70 BP Cuff Size Regular Temp-Oral (F) 97.7 Height (in) 60 Weight (lb) 112 Body Mass Index (kg/m2) 21.9 Body Surface Area (m2) 1.5 Last Documented: On 02/06/2022 10:48A M ; [facility] Results Includes: Results discussed during this encounter No Results Recorded For Specified Dates History of Present Illness Includes: History of Present Illness from this encounter HPI - Allergy list reviewed - Medication list reviewed Pt desires OCP restart for cycle regulation and dysmenorrhea. Pt admits cycles lasting 7 days duration with heavy flow days 2-4, but denies using > 8 sanitary items/24 hours. Pt. also reports vaginal pain during coitus for 1 month duration Social History Description Last Updated Activities 02/06/2022 Last Documented On 2 12:20PM ; [facility] Alcohol use: 2 drinks or less per day no ne 02/06/2022 Last Documented On 2 12:20PM ; [facility] Current nonsmoker 02/06/2022 Last Documented On 2 12:20PM ; [facility] Currently in school 02/06/2022 Last Documented On 2 12:20PM ; [facility] Education history 02/06/2022 Last Documented On 2 12:20PM ; [facility] Educational level 02/06/2022 Last Documented On 2 12:20PM ; [facility] No consumption of alcohol 02/06/2022 Last Documented On 2 12:20PM ; [facility] Non-smoker 02/06/2022 Last Documented On 2 12:20PM ; [facility] Not a smoker 02/06/2022 Last Documented On 2 12:20PM ; [facility] 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[place] 11/2021 Last Documented On 2 12:20PM ; [facility] Sexually active 02/06/2022 Last Documented On 2 12:20PM ; [facility] Single 02/06/2022 Last Documented On 2 12:20PM ; [facility] Smoking status : Never smoker 02/06/2022 Last Documented On 2 12:20PM ; [facility] Not using alcohol 02/06/2022 Last Documented On 2 12:20PM ; [facility] Not using drugs 02/06/2022 Last Documented On 2 12:20PM ; [facility] Sexually active with 1 partners in the l ast year 02/06/2022 Last Documented On 2 12:20PM ; [facility] Tobacco non-user 02/06/2022 Last Documented On 2 12:20PM ; [facility] Procedures and Surgical History Includes: Procedures from this encounter Procedures Code Diagnosis Performing Provider Service L ocation Service Date education and instructions to consider pelvic U/S if sx. persist, as pt very intolerant of spec exam today Last Documented On 2 12:03PM ; [facility] explanation of plan Last Documented On 2 10:58AM ; [facility] Discussed Contraception inst ructed to begin OCP pack today and use BUM as directed first cycle Last Documented On 2 12:02PM ; [facility] Urged Exercise and Diet , exercise at le ast 30 min three times per week Last Documented On 2 10:58AM ; [facility] Clinical summary provided to patient Last Documented On 2 10:58AM ; [facility] urinalysis was performed [id number] Last Documented On 2 12:04PM ; [facility] urine glucose negative Last Documented On 2 12:04PM ; [facility] urine protein negative Last Documented On 2 12:04PM ; [facility] cervical Pap smear [id number] Last Documented On 2 10:58AM ; [facility] test was performed [id number] Last Documented On 2 12:04PM ; [facility] urine leukocyte esterase negative [id number] Last Documented On 2 12:04PM ; [facility] urine nitrate negative Last Documented On 2 12:04PM ; [facility] normal urine ketones Last Documented On 2 12:04PM ; [facility] Medical History Includes: Medical History addressed during this encounter Description Last Updated Contraception: condoms 100% 02/06/2022 Last Documented On 2 12:20PM ; [facility] Sexually active last unprotected sex was months ago 02/06/2022 Last Documented On 2 12:20PM ; [facility] LMP: 01/31/2022 02/06/2022 Last Documented On 2 12:20PM ; [facility] Primary Care Provider: In [place], unsure of name 02/06/2022 Last Documented On 2 12:20PM ; [facility] 0 03/17/2018 Last Documented On 2 10:45AM ; [facility] Family History Includes: Family History addressed during this encounter Description Last Updated Family history of diabetes mellitus jina cortés aunt and cousin 02/26/2017 Last Documented On 2 10:45AM ; [facility] Review of Systems Includes: Review of Systems from this encounter Systemic: Feeling fine and not tiring easily. No fever, no chills, no unusual bleeding, and no recent weight change. Head: No headache. Neck: No neck pain and no swollen glands in the neck. Eyes: No vision problems. Breasts: No breast symptoms, no breast lump, no pain in breast, and patient performs self breast exams. Cardiovascular: No chest pain or discomfort, no palpitations, no intermittent leg claudication, and no varicosities. Pulmonary: No pulmonary symptoms and no dyspnea. Gastrointestinal: No heartburn and no indigestion. No nausea, no vomiting, no abdominal pain, and no melena. No diarrhea and no constipation. Genitourinary: No change in urinary frequency and no incomplete emptying of bladder. No urinary loss of control and no dysuria. No genital lesion and no vaginal dryness. Normal menses and no nonmenstrual bleeding. No vaginal discharge. Endocrine: No polydipsia, no hot flashes, and libido has not changed. Hematologic: No blood clotting problems. Musculoskeletal: No back pain, no muscle aches, and no localized joint pain. Neurological: No dizziness. Psychological: No anxiety, no depression, and a desire to continue living. Skin: No pruritus. No skin lesions and no rash. Allergic and Immunologic: No hay fever. Mental Status Includes: Mental Status from this encounter Description Oriented to time, place, and person No anxiety A desire to continue living Functional Status Includes: Functional Status from this encounter No Functional Status Recorded Physical Exam Includes: Physical Exam from this encounter Allergies Includes: Active Allergies No Known Allergies Encounters Encounter Provider Location Date Check-In Time Check-Out Time Diagnosis WELL WOMAN - ESTABLISHED PT XOCHITL OQUENDO RN GUILLERMO [facility] 022 10:44AM 11:18AM Screen Malignant Neoplasm Cervix,Routine Gynecological Exam with Abnormal Findings,Female Pelvic Pain Insurance Includes: Active Insurance Policies Plan Name Member ID Group # Subscriber Relationship Effect yolanda Dates - [facility] [id number] CHRISTINE DE LEON Clinical Notes Includes: Clinical Notes from this encounter No Clinical Notes Recorded
--- OUTSIDE RECORDS SUMMARY | 2024-07-19 16:19 | XMS_ITS | Clinical Summary ---
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 Allow the area to have exposure to air. Avoid irritants such as fabric softeners and perfumed soaps.~ Last Documented On 3 11:31AM ; [facility] Education and Decision Aids were provided during visit for: Patient counseling :to consi darion pelvic U/S if pelvic pain persists despite analgesics Last Documented On 3 11:31AM ; [facility] Assessments Includes: Assessments from this encounter Findings - [N76.0 - Acute vaginitis] Vaginitis - Last Documented On 08/29/2022 11:32AM ; [facility] Instructions Includes: Instructions from this encounter Instructions to patient Instructions for patient : K eep the area around the vulva dry. Allow the area to have exposure to air. Avoid irritants such as fabric softeners and perfumed soaps.~ Last Documented On 3 11:31AM ; [facility] Education and Decision Aids were provided during visit for: Patient counseling :to consi darion pelvic U/S if pelvic pain persists despite analgesics Last Documented On 3 11:31AM ; [facility] Medical Equipment - Implanted Devices Includes: Current Devices No Medical Equipment Recorded Medications Includes: Medications discussed during this encounter and other current Medications New / Renewed during this visit XOCHITL HEATON on 08/29/2022 Fluconazole 150 MG Oral Tablet Provider: XOCHITL HEATON 2 day supply: 2 tablet, 0 refills Diagnosis: Acute vaginitis 1 daily Pt. is to take 1 now and then repeat in 3 days [facility] [address] , [facility], [phone] - Last Documented On 3 11:27AM By XOCHITL OROURKE ; [facility] Ibuprofen 800 MG Oral Tablet Provider: XOCHITL HEATON 7 day supply: 21 tablet, 2 refills Diagnosis: Dysmenorrhea, unspecified One tablet three times a day [facility] [address] [facility], [phone] - Last Documented On 3 11:43AM By XOCHITL OROURKE ; [facility] Past Medications on file Azithromycin 500 MG Oral Tablet 08/13/2022 - 08/14/2022 Provider: XOCHITL HEATON Diagnosis: Inflammatory dis ease of cervix uteri as directed 2 TABLETS NOW Last Documented On 3 10:34AM By XOCHITL OROURKE ; [facility] Condoms Miscellaneous 08/13/2022 - 08/23/2022 Provider: XOCHITL HEATON Diagnosis: Encounter for ot h general cnsl and advice on contraception as directed Last Documented On 3 10:47AM By XOCHITL OROURKE ; [facility] Clindamycin HCl 300 MG Oral Capsule 07/21/2020 - 07/28/2020 Provider: XOCHITL HEATON Diagnosis: Acute vaginitis One tablet twice a day Last Documented On 1 11:53AM By XOCHITL OROURKE ; [facility] metroNIDAZOLE 500 MG Oral Tablet 07/18/2020 - 07/19/2020 Provider: XOCHITL CHA Diagnosis: Acute vaginitis as directed ALL 4 TABS X 1 D OSE WITH FOOD ETOH WARNING X 48 HOURS Last Documented On 1 2:41PM By XOCHITL OROURKE ; [facility] Fluconazole 150 MG Oral Tablet 07/05/2020 - 07/07/2020 Provider: XOCHITL CHA Diagnosis: Acute vaginitis 1 daily Pt. is to take 1 now and then repeat in 3 days Last Documented On 1 8:19AM By XOCHITL OROURKE ; [facility] NuvaRing 0.12-0.015 MG/24HR Vaginal Ring 07/15/2019 - 09/09/2019 Provider: XOCHITL CHA Diagnosis: Encounter for in itial prescription of vagnl ring as directed INSERT RING IN V AGINA FIRST FRIDAY AFTER MENSES BEGINS REMOVE RING AFTER 21 DAYS/3WEEKS REINSERT NEW RING DAY Friday Last Documented On 0 9:52AM By XOCHITL OROURKE ; [facility] Condoms Miscellaneous 04/20/2019 - 05/02/2019 Provider: XOCHITL CHA Diagnosis: Encounter for surveillance of contraceptives, unspecified as directed Last Documented On 9 10:33AM By XOCHITL OROURKE ; [facility] Terconazole 0.8% Vaginal Cream 12/29/2017 - 01/01/2018 Provider: XOCHITL CHA Diagnosis: Acute vaginitis USE DIRECTED 1 ap in vaga delores every night x 3 apply bid to external genitals Last Documented On 8 3:53PM By XOCHITL OROURKE ; [facility] Naproxen 500MG Oral Tablet 03/07/2017 - 03/12/2017 Provider: XOCHITL CHA Diagnosis: Encounter for reed rveillance of other contraceptives One tablet twice a day USE A S DIRECTED W/FOOD DON'T EXCEED 2 IN 24 HOURS Last Documented On 7 3:12PM By XOCHITL OROURKE ; [facility] Loestrin 1/20 (21) 1-20MG-MCG Oral Tablet 02/28/2017 - 05/23/2017 Provider: XOCHITL HEATON Diagnosis: Encounter for ot h general cnsl and advice on contraception One tablet daily TAKE DIRECTED W/FOOD Last Documented On 7 2:24PM By XOCHITL OROURKE ; [facility] Fluconazole 150MG Oral Tablet 02/26/2017 - 02/28/2017 Provider: XOCHITL CHA BC Diagnosis: Acute vaginitis 1 daily Pt. is to take 1 now and then repeat in 3 days Last Documented On 7 9:53AM By XOCHITL OROURKE ; [facility] Medications Administered Includes: Administered Medications from this encounter No Administered Medications Recorded Vital Signs Includes: Vital Signs from this encounter Vital Name 08/29/2022 11:05A Blood Pressure Sitting L 108/70 BP Cuff Size Regular Temp-Temporal 97.2 Height (in) 60 Weight (lb) 113 Body Mass Index 22.1 Body Surface Area 1.5 Last Documented: On 08/29/2022 11:09A M ; [facility] Results Includes: Results discussed during this encounter No Results Recorded For Specified Dates History of Present Illness Includes: History of Present Illness from this encounter HPI - Allergy list reviewed - Medication list reviewed Social History No Social History Recorded - Smoking Status Unknown Medical History Includes: Medical History addressed during this encounter Description Last Updated Sexually active last unprote cted 5 weeks ago, denies any sexual activity since last visit 08/29/2022 Last Documented On 3 11:32AM ; [facility] History of vaginitis 08/29/2022 Last Documented On 3 11:32AM ; [facility] LMP: 08/13/2022 08/29/2022 Last Documented On 3 11:32AM ; [facility] Primary Care Provider: In [place], unsure of name 02/06/2022 Last Documented On 3 11:04AM ; [facility] 0 03/17/2018 Last Documented On 3 11:04AM ; [facility] Family History Includes: Family History addressed during this encounter Description Last Updated Family history of diabetes mellitus muro rnal aunt and cousin 02/26/2017 Last Documented On 3 11:04AM ; [facility] Review of Systems Includes: Review of Systems from this encounter Systemic: No fever and no chills. Head: No headache. Cardiovascular: No chest pain or discomfort. Pulmonary: No dyspnea. Gastrointestinal: No nausea, no vomiting, and no abdominal pain. Genitourinary: No increase in urinary frequency. No dysuria. Vaginal discharge thick green yellow tinged at times as weel as intermittent pelvic cramping relieved with Ibuprofen. Skin: No skin lesions and no rash. Mental Status Includes: Mental Status from this encounter No Mental Status Recorded Functional Status Includes: Functional Status from this encounter No Functional Status Recorded Physical Exam Includes: Physical Exam from this encounter Allergies Includes: Active Allergies No Known Allergies Encounters Encounter Provider Location Date Check-In Time Check- Out Time Diagnosis PROBLEM VISIT XOCHITL HEATON [facility] 3 11:01AM 11:28AM Vaginitis Insurance Includes: Active Insurance Policies Plan Name Member ID Group # Subscriber Relationship Effect yolanda Dates 1 - [facility] [id number] CHRISTINE DE LEON Clinical Notes Includes: Clinical Notes from this encounter * Progress note Date Encounter Last Documented by 08/29/2022 PROBLEM VISIT Last documented on 08/29/2022; 11:32 AM, XOCHITL CHA ; [facility] Active Problems & Conditions - G43.109 - Classic Migraine W/ Aura W/o Intractable Migraine W/o Status Migrainosus Chief Complaint The Chief Complaint is: Pt complains of vaginal discharge that is greenish/clear that started about 4 days ago. Reason For Visit Visit for: gynecologic evaluation for vulvar-vaginal complaints. History of Present Illness - Allergy list reviewed - Medication list reviewed Current Medication - None Past Medical/Surgical History Other: Primary Care Provider: In [place], unsure of name Reported: LMP: 08/13/2022. : 0. Sexual: Sexually active last unprotected 5 weeks ago, denies any sexual activity since last visit. Diagnoses: Vaginitis Allergies - No Known Allergies Family History Diabetes mellitus paternal aunt and cousin Review Of Systems Systemic: No fever and no chills. Head: No headache. Cardiovascular: No chest pain or discomfort. Pulmonary: No dyspnea. Gastrointestinal: No nausea, no vomiting, and no abdominal pain. Genitourinary: No increase in urinary frequency. No dysuria. Vaginal discharge thick green yellow tinged at times as weel as intermittent pelvic cramping relieved with Ibuprofen. Skin: No skin lesions and no rash. Physical Findings - Vitals taken 08/29/2022 11:05 am BP-Sitting L 108/70 mmHg BP Cuff Size Regular Temp-Temporal 97.2 F Height 60 in Weight 113 lbs Body Mass Index 22.1 kg/m2 Body Surface Area 1.5 m2 Lymph Nodes: - Normal. Genitalia: External: - Genitalia showed no abnormalities. Pelvic: - No ovarian mass. Vagina: - A vaginal discharge was observed thick white mod. amount in vault. Cervix: - No cervical discharge. - Showed no lesion. - Did not demonstrate pain elicited by motion. Uterus: - Not enlarged. - Not tender. Uterine Adnexae: - Uterine adnexa was not tender. Assessment - [N76.0 - Acute vaginitis] Vaginitis Counseling/Education - Instructions for patient: Keep the area around the vulva dry. Allow the area to have exposure to air. Avoid irritants such as fabric softeners and perfumed soaps. - Patient counseling:to consider pelvic U/S if pelvic pain persists despite analgesics Plan StartCited - Acute vaginitis Lab: CULTURE ANAEROBIC Lab: CULTURE WOUND Lab: BACTERIAL VAGINOSIS/VAGINITIS PANEL ( AFFIRM SWAB) Lab: [facility] Fluconazole 150 MG tablet 1 daily Pt. is to take 1 now and then repeat in 3 days, 2 days, 0 refills EndCited StartCited - Dysmenorrhea, unspecified Ibuprofen 800 MG tablet One tablet three times a day, 7 days, 2 refills EndCited StartCited - Other PHY ORDER/COMMENT prn and annual EndCited Health Reminders - Assess BMI satisfied 08/29/2022.
--- OUTSIDE RECORDS SUMMARY | 2024-07-19 16:20 | XMS_ITS | Clinical Summary ---
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 - Last Documented On 02/06/2022 12:20PM ; [facility] Instructions to patient Instructions for patient : B reast Self Exam discussed and technique reviewed Last Documented On 2 10:58AM ; [facility] Use a condom during sexual i ntercourse Last Documented On 2 10:58AM ; [facility] Instructed to call if excess yolanda bleeding or abdominal/pelvic pain Last Documented On 2 10:58AM ; [facility] Recommend diet and exercise at least 30 min three times per week Last Documented On 2 10:58AM ; [facility] Education and Decision Aids were provided during visit for: Patient education RE: yeni guan signals associated with hormonal contraceptive use including abdominal, chest, or leg pain, headaches or visual disturbances Last Documented On 2 10:58AM ; [facility] Patient Education: Daily porter cium and vitamin D Last Documented On 2 10:58AM ; [facility] Assessments Includes: Assessments from this encounter Findings - Routine gynecological exam with abnormal findings - Last Documented On 02/06/2022 12:20PM ; [facility] - Female pelvic pain - Last Documented On 02/06/2022 12:20PM ; [facility] - Screen malignant neoplasm cervix - Last Documented On 02/06/2022 12:20PM ; [facility] Instructions Includes: Instructions from this encounter Instructions to patient Instructions for patient : B reast Self Exam discussed and technique reviewed Last Documented On 2 10:58AM ; [facility] Use a condom during sexual i ntercourse Last Documented On 2 10:58AM ; [facility] Instructed to call if excess yolanda bleeding or abdominal/pelvic pain Last Documented On 2 10:58AM ; [facility] Recommend diet and exercise at least 30 min three times per week Last Documented On 2 10:58AM ; [facility] Education and Decision Aids were provided during visit for: Patient education RE: yeni guan signals associated with hormonal contraceptive use including abdominal, chest, or leg pain, headaches or visual disturbances Last Documented On 2 10:58AM ; [facility] Patient Education: Daily porter cium and vitamin D Last Documented On 2 10:58AM ; [facility] Medical Equipment - Implanted Devices Includes: [...] f contraceptive pills One tablet daily Pharmacy: [facility]) - [facility] , [facility], [phone] - Last Documented On 3 11:10AM By XOCHITL CHA- ; [facility] Past Medications on file Fluconazole 150 MG Oral Tablet 08/29/2022 - 08/31/2022 Provider: XOCHITL M AZRA RN [facility]NP BC Diagnosis: Acute vaginitis 1 daily Pt. is to take 1 now and then repeat in 3 days Last Documented On 3 11:27AM By XOCHITL OROURKE ; [facility] Ibuprofen 800 MG Oral Tablet 08/29/2022 - 09/19/2022 Provider: XOCHITL CHA Diagnosis: Dysmenorrhea, unspecified One tablet three times a day Last Documented On 3 11:43AM By XOCHITL OROURKE ; [facility] Azithromycin 500 MG Oral Tablet 08/13/2022 - 08/14/2022 Provider: XOCHITL CHA BC Diagnosis: Inflammatory dis ease of cervix uteri as directed 2 TABLETS NOW Last Documented On 3 10:34AM By XOCHITL OROURKE ; [facility] Condoms Miscellaneous 08/13/2022 - 08/23/2022 Provider: XOCHITL CHA Diagnosis: Encounter for ot h general cnsl and advice on contraception as directed Last Documented On 3 10:47AM By XOCHITL OROURKE ; [facility] Clindamycin HCl 300 MG Oral Capsule 07/21/2020 - 07/28/2020 Provider: XOCHITL CHA Diagnosis: Acute vaginitis One tablet twice a day Last Documented On 1 11:53AM By XOCHITL OROURKE ; [facility] metroNIDAZOLE 500 MG Oral Tablet 07/18/2020 - 07/19/2020 Provider: XOCHITL CHA Diagnosis: Acute vaginitis as directed ALL 4 TABS X 1 D OSE WITH FOOD ETOH WARNING X 48 HOURS Last Documented On 1 2:41PM By XOCHITL OROURKE ; [facility] Fluconazole 150 MG Oral Tablet 07/05/2020 - 07/07/2020 Provider: XOCHITL CHA Diagnosis: Acute vaginitis 1 daily Pt. is to take 1 now and then repeat in 3 days Last Documented On 1 8:19AM By XOCHITL OROURKE ; [facility] NuvaRing 0.12-0.015 MG/24HR Vaginal Ring 07/15/2019 - 09/09/2019 Provider: XOCHITL CHA BC Diagnosis: Encounter for in itial prescription of vagnl ring as directed INSERT RING IN V AGINA FIRST FRIDAY AFTER MENSES BEGINS REMOVE RING AFTER 21 DAYS/3WEEKS REINSERT NEW RING DAY Friday Last Documented On 0 9:52AM By XOCHITL OROURKE ; [facility] Condoms Miscellaneous 04/20/2019 - 05/02/2019 Provider: XOCHITL CHA BC Diagnosis: Encounter for surveillance of contraceptives, unspecified as directed Last Documented On 9 10:33AM By XOCHITL OROURKE ; [facility] Terconazole 0.8% Vaginal Cream 12/29/2017 - 01/01/2018 Provider: XOCHITL HEATON Diagnosis: Acute vaginitis USE DIRECTED 1 ap in vaga delores every night x 3 apply bid to external genitals Last Documented On 8 3:53PM By XOCHITL OROURKE ; [facility] Naproxen 500MG Oral Tablet 03/07/2017 - 03/12/2017 Provider: XOCHITL CHA Diagnosis: Encounter for reed rveillance of other contraceptives One tablet twice a day USE A S DIRECTED W/FOOD DON'T EXCEED 2 IN 24 HOURS Last Documented On 7 3:12PM By XOCHITL OROURKE ; [facility] Loestrin 1/20 (21) 1-20MG-MCG Oral Tablet 02/28/2017 - 05/23/2017 Provider: XOCHITL CHA Diagnosis: Encounter for ot h general cnsl and advice on contraception One tablet daily TAKE DIRECTED W/FOOD Last Documented On 7 2:24PM By XOCHITL OROURKE ; [facility] Fluconazole 150MG Oral Tablet 02/26/2017 - 02/28/2017 Provider: XOCHITL CHA Diagnosis: Acute vaginitis 1 daily Pt. is to take 1 now and then repeat in 3 days Last Documented On 7 9:53AM By XOCHITL OROURKE ; [facility] Medications Administered Includes: Administered Medications from this encounter No Administered Medications Recorded Vital Signs Includes: Vital Signs from this encounter Vital Name 02/06/2022 10:45A Blood Pressure Sitting L 100/70 BP Cuff Size Regular Temp-Oral (F) 97.7 Height (in) 60 Weight (lb) 112 Body Mass Index (kg/m2) 21.9 Body Surface Area (m2) 1.5 Last Documented: On 02/06/2022 10:48A M ; [facility] Results Includes: Results discussed during this encounter [...] 02/06/2022 Last Documented On 2 12:20PM ; [facility] Alcohol use: 2 drinks or less per day no ne 02/06/2022 Last Documented On 2 12:20PM ; [facility] Current nonsmoker 02/06/2022 Last Documented On 2 12:20PM ; [facility] Currently in school 02/06/2022 Last Documented On 2 12:20PM ; [facility] Education history 02/06/2022 Last Documented On 2 12:20PM ; [facility] Educational level 02/06/2022 Last Documented On 2 12:20PM ; [facility] No consumption of alcohol 02/06/2022 Last Documented On 2 12:20PM ; [facility] Non-smoker 02/06/2022 Last Documented On 2 12:20PM ; [facility] Not a smoker 02/06/2022 Last Documented On 2 12:20PM ; [facility] 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[place] 11/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 Last Documented On 2 12:20PM ; [facility] Sexually active 02/06/2022 Last Documented On 2 12:20PM ; [facility] Single 02/06/2022 Last Documented On 2 12:20PM ; [facility] Smoking status : Never smoker 02/06/2022 Last Documented On 2 12:20PM ; [facility] Not using alcohol 02/06/2022 Last Documented On 2 12:20PM ; [facility] Not using drugs 02/06/2022 Last Documented On 2 12:20PM ; [facility] Sexually active with 1 partners in the l ast year 02/06/2022 Last Documented On 2 12:20PM ; [facility] Tobacco non-user 02/06/2022 Last Documented On 2 12:20PM ; [facility] Procedures and Surgical History Includes: Procedures from this encounter Procedures Code Diagnosis Performing Provider Service L ocation Service Date education and instructions to consider pelvic U/S if sx. persist, as pt very intolerant of spec exam today Last Documented On 2 12:03PM ; [facility] explanation of plan Last Documented On 2 10:58AM ; [facility] Discussed Contraception inst ructed to begin OCP pack today and use BUM as directed first cycle Last Documented On 2 12:02PM ; [facility] Urged Exercise and Diet , exercise at le ast 30 min three times per week Last Documented On 2 10:58AM ; [facility] Clinical summary provided to patient Last Documented On 2 10:58AM ; [facility] urinalysis was performed [id number] Last Documented On 2 12:04PM ; [facility] urine glucose negative Last Documented On 2 12:04PM ; [facility] urine protein negative Last Documented On 2 12:04PM ; [facility] cervical Pap smear 17919 Last Documented On 2 10:58AM ; [facility] test was performed [id number] Last Documented On 2 12:04PM ; [facility] urine leukocyte esterase negative 32532 Last Documented On 2 12:04PM ; [facility] urine nitrate negative Last Documented On 2 12:04PM ; [facility] normal urine ketones Last Documented On 2 12:04PM ; [facility] Medical History Includes: Medical History addressed during this encounter Description Last Updated Contraception: condoms 100% 02/06/2022 Last Documented On 2 12:20PM ; [facility] Sexually active last unprotected sex was months ago 02/06/2022 Last Documented On 2 12:20PM ; [facility] LMP: 01/31/2022 02/06/2022 Last Documented On 2 12:20PM ; [facility] Primary Care Provider: In [place], unsure of name 02/06/2022 Last Documented On 2 12:20PM ; [facility] 0 03/17/2018 Last Documented On 2 10:45AM ; [facility] Family History Includes: Family History addressed during this encounter Description Last Updated Family history of diabetes mellitus jina cortés aunt and cousin 02/26/2017 Last Documented On 2 10:45AM ; [facility] Review of Systems Includes: Review of [...] - ESTABLISHED PT XOCHITL OQUENDO RN [facility]LL[facility]MO [facility] 022 10:44AM 11:18AM Screen Malignant Neoplasm Cervix,Routine Gynecological Exam with Abnormal Findings,Female Pelvic Pain Insurance Includes: Active Insurance Policies Plan Name Member ID Group # Subscriber Relationship Effect yolanda Dates - [facility] [id number] CHRISTINE DE LEON Clinical Notes Includes: Clinical Notes from this encounter No Clinical Notes Recorded
--- OUTSIDE RECORDS SUMMARY | 2024-07-19 16:20 | XMS_ITS | Clinical Summary ---
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 08/13/2022 XOCHITL HEATON Active Last Documented On 3 10:32AM ; [facility] Plan of Treatment No Plan of [...] On 3 11:27AM By XOCHITL OROURKE ; [facility] Ibuprofen 800 MG Oral Tablet 08/29/2022 - 09/19/2022 Provider: XOCHITL HEATON Diagnosis: Dysmenorrhea, unspecified One tablet three times a day Last Documented On 3 11:43AM By XOCHITL OROURKE ; [facility] Azithromycin 500 MG Oral Tablet 08/13/2022 - 08/14/2022 Provider: XOCHITL HEATON Diagnosis: Inflammatory dis ease of cervix uteri as directed 2 TABLETS NOW Last Documented On 3 10:34AM By XOCHITL OROURKE ; [facility] Condoms Miscellaneous 08/13/2022 - 08/23/2022 Provider: XOCHITL CHA BC Diagnosis: Encounter for ot h general cnsl and advice on contraception as directed Last Documented On 3 10:47AM By XOCHITL OROURKE ; [facility] Clindamycin HCl 300 MG Oral Capsule 07/21/2020 - 07/28/2020 Provider: XOCHITL CHA BC Diagnosis: Acute vaginitis One tablet twice a day Last Documented On 1 11:53AM By XOCHITL OROURKE ; [facility] metroNIDAZOLE 500 MG Oral Tablet 07/18/2020 - 07/19/2020 Provider: XOCHITL CHA BC Diagnosis: Acute vaginitis as directed ALL 4 TABS X 1 D OSE WITH FOOD ETOH WARNING X 48 HOURS Last Documented On 1 2:41PM By XOCHITL OROURKE ; [facility] Fluconazole 150 MG Oral Tablet 07/05/2020 - 07/07/2020 Provider: XOCHITL CHA BC Diagnosis: Acute vaginitis 1 daily Pt. is to take 1 now and then repeat in 3 days Last Documented On 1 8:19AM By XOCHITL OROURKE ; [facility] NuvaRing 0.12-0.015 MG/24HR Vaginal Ring 07/15/2019 - 09/09/2019 Provider: XOCHITL CHA BC Diagnosis: Encounter for in itial prescription of vagnl ring as directed INSERT RING IN V AGINA FIRST FRIDAY AFTER MENSES BEGINS REMOVE RING AFTER 21 DAYS/3WEEKS REINSERT NEW RING DAY Friday Last Documented On 0 9:52AM By XOCHITL OROURKE ; [facility] Condoms Miscellaneous 04/20/2019 - 05/02/2019 Provider: XOCHITL CHA BC Diagnosis: Encounter for surveillance of contraceptives, unspecified as directed Last Documented On 9 10:33AM By XOCHITL OROURKE ; [facility] Terconazole 0.8% Vaginal Cream 12/29/2017 - 01/01/2018 Provider: XOCHITL CHA BC Diagnosis: Acute vaginitis USE DIRECTED 1 ap in vaga [place] every night x 3 apply bid to external genitals Last Documented On 8 3:53PM By XOCHITL OROURKE ; [facility] Naproxen 500MG Oral Tablet 03/07/2017 - 03/12/2017 Provider: XOCHITL HEATON Diagnosis: Encounter for reed rveillance of other contraceptives One tablet twice a day USE A S DIRECTED W/FOOD DON'T EXCEED 2 IN 24 HOURS Last Documented On 7 3:12PM By XOCHITL OROURKE ; [facility] Loestrin 1/20 (21) 1-20MG-MCG Oral Tablet 02/28/2017 - 05/23/2017 Provider: XOCHITL HEATON Diagnosis: Encounter for ot h general cnsl and advice on contraception One tablet daily TAKE DIRECTED W/FOOD Last Documented On 7 2:24PM By XOCHITL OROURKE ; [facility] Fluconazole 150MG Oral Tablet 02/26/2017 - 02/28/2017 Provider: XOCHITL CHA Diagnosis: Acute vaginitis 1 daily Pt. is to take 1 now and then repeat in 3 days Last Documented On 7 9:53AM By XOCHITL OROURKE ; [facility] Medications Administered Includes: Administered Medications from [...] 08/29/2022 Last Documented On 3 9:54AM ; [facility] LMP: 01/31/2022 08/29/2022 Last Documented On 3 9:54AM ; [facility] Contraception: condoms 100% 08/13/2022 Last Documented On 3 9:54AM ; [facility] Primary Care Provider: In [place], unsure of name 02/06/2022 Last Documented On 3 9:54AM ; [facility] 0 03/17/2018 Last Documented On 3 9:54AM ; [facility] Family History Includes: Family History addressed during this encounter Description Last Updated Family history of diabetes mellitus jina cortés aunt and cousin 02/26/2017 Last Documented On 3 9:54AM ; [facility] Review of Systems Includes: Review of [...] Subscriber Relationship Effect yolanda Dates 1 - [facility] [id number] CHRISTINE DE LEON Clinical Notes Includes: Clinical Notes from this encounter * Progress note Date Encounter Last Documented by 08/12/2022 * PHONE CALL Last documented on 08/12/2022; 10:11 AM, XOCHITL CHA ; [facility] Chief Complaint Phone Call - Chief Concern: [...] okay. pt phone # for return call: [phone] Date/Initials: 08/12/2022 MY. Current Medication - Levora 0.15/30 (28) 0.15-30 MG-MCG Oral Tablet One tablet daily, 28 days, 12 refills Past Medical/Surgical History Other: Primary Care Provider: In [place], unsure of name Reported: LMP: 01/31/2022 and [...]
--- OUTSIDE RECORDS SUMMARY | 2024-07-19 16:20 | XMS_ITS | Clinical Summary ---
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 sized pad/tampon < 1 hour Last Documented On 3 11:07AM ; [facility] Instructions for patient ER if dizzy, vomiting or light-headed due to heavy bleeding Last Documented On 3 11:07AM ; [facility] Return to the clinic if cond ition worsens or new symptoms arise Last Documented On 3 11:08AM ; [facility] Education and Decision Aids were provided during visit for: Patient counseling : STD pre vention. I discussed with the patient that condoms can reduce the chance of getting an STD but not eliminate it. Increased exposure from multiple sex partners also discussed Last Documented On 3 11:08AM ; [facility] Assessments Includes: Assessments from this encounter Findings - [N72 - Inflammatory disease of cervix uteri] Cervicitis r/o infection - Last Documented On 08/13/2022 11:22AM ; [facility] - [R10.2 - Pelvic and perineal pain] Female pelvic pain - Last Documented On 08/13/2022 11:22AM ; [facility] - [G43.109 - Migraine with aura, not intractable, without status migrainosus] Classic migraine (with aura) without intractable migraine without status migrainosus - Last Documented On 08/13/2022 11:22AM ; [facility] Instructions Includes: Instructions from this encounter Instructions to patient Instructions for patient ER if bleeding through reg. sized pad/tampon < 1 hour Last Documented On 3 11:07AM ; [facility] Instructions for patient ER if dizzy, vomiting or light-headed due to heavy bleeding Last Documented On 3 11:07AM ; [facility] Return to the clinic if cond ition worsens or new symptoms arise Last Documented On 3 11:08AM ; [facility] Education and Decision Aids were provided during visit for: Patient counseling : STD pre vention. I discussed with the patient that condoms can reduce the chance of getting an STD but not eliminate it. Increased exposure from multiple sex partners also discussed Last Documented On 11:08AM ; [facility] Medical Equipment - Implanted Devices Includes: Current Devices No Medical Equipment Recorded Medications Includes: Medications discussed during this encounter and other current Medications Discontinued / Stopped on this date XOCHITL CHA on 02/06/2022 Levora 0.15/30 (28) 0.15-30 MG-MCG Oral Tablet Provider: XOCHITL DEGROOT P Diagnosis: Encounter for reed rveillance of contraceptive pills Last Documented On 3 11:10AM By XOCHITL OROURKE ; [facility] New / Renewed during this visit XOCHITL HEATON on 08/13/2022 Azithromycin 500 MG Oral Tablet Provider: XOCHITL HEATON 1 day supply: 2 tablet, 0 refills Diagnosis: Inflammatory disease of cervix uteri as directed 2 TABLETS NOW Pharmacy: [facility]) - [address] , [facility], [phone] - Last Documented On 3 10:34AM By XOCHITL OROURKE ; [facility] Condoms Miscellaneous Provider: XOCHITL HEATON 10 day supply: 5 each, 0 refills Diagnosis: Encounter for oth general cnsl and advice on contraception as directed Last Documented On 3 10:47AM By XOCHITL OROURKE ; [facility] Past Medications on file Fluconazole 150 MG Oral Tablet 08/29/2022 - 08/31/2022 Provider: XOCHITL CHA Diagnosis: Acute vaginitis 1 daily Pt. is to take 1 now and then repeat in 3 days Last Documented On 3 11:27AM By XOCHITL OROURKE ; [facility] Ibuprofen 800 MG Oral Tablet 08/29/2022 - 09/19/2022 Provider: XOCHITL OQUENDO RN [facility] Diagnosis: Dysmenorrhea, unspecified One tablet three times a day Last Documented On 3 11:43AM By XOCHITL OROURKE ; [facility] Clindamycin HCl 300 MG Oral Capsule 07/21/2020 - 07/28/2020 Provider: XOCHITL OQUENDO RN [facility] Diagnosis: Acute vaginitis One tablet twice a day Last Documented On 1 11:53AM By XOCHITL OROURKE ; [facility] metroNIDAZOLE 500 MG Oral Tablet 07/18/2020 - 07/19/2020 Provider: XOCHITL CHA Diagnosis: Acute vaginitis as directed ALL 4 TABS X 1 D OSE WITH FOOD ETOH WARNING X 48 HOURS Last Documented On 1 2:41PM By XOCHITL OROURKE ; [facility] Fluconazole 150 MG Oral Tablet 07/05/2020 - 07/07/2020 Provider: XOCHITL CHA Diagnosis: Acute vaginitis 1 daily Pt. is to take 1 now and then repeat in 3 days Last Documented On 1 8:19AM By XOCHITL OROURKE ; [facility] NuvaRing 0.12-0.015 MG/24HR Vaginal Ring 07/15/2019 - 09/09/2019 Provider: XOCHITL OQUENDO RN [facility] Diagnosis: Encounter for in itial prescription of vagnl ring as directed INSERT RING IN V AGINA FIRST FRIDAY AFTER MENSES BEGINS REMOVE RING AFTER 21 DAYS/3WEEKS REINSERT NEW RING DAY Friday Last Documented On 0 9:52AM By XOCHITL OROURKE ; [facility] Condoms Miscellaneous 04/20/2019 - 05/02/2019 Provider: XOCHITL HEATON Diagnosis: Encounter for surveillance of contraceptives, unspecified as directed Last Documented On 9 10:33AM By XOCHITL OROURKE ; [facility] Terconazole 0.8% Vaginal Cream 12/29/2017 - 01/01/2018 Provider: XOCHITL CHA BC Diagnosis: Acute vaginitis USE DIRECTED 1 ap in vaga delores every night x 3 apply bid to external genitals Last Documented On 8 3:53PM By XOCHITL OROURKE ; [facility] Naproxen 500MG Oral Tablet 03/07/2017 - 03/12/2017 Provider: XOCHITL HEATON Diagnosis: Encounter for reed rveillance of other contraceptives One tablet twice a day USE A S DIRECTED W/FOOD DON'T EXCEED 2 IN 24 HOURS Last Documented On 7 3:12PM By XOCHITL OROURKE ; [facility] Loestrin 1/20 (21) 1-20MG-MCG Oral Tablet 02/28/2017 - 05/23/2017 Provider: XOCHITL CHA Diagnosis: Encounter for ot h general cnsl and advice on contraception One tablet daily TAKE DIRECTED W/FOOD Last Documented On 7 2:24PM By XOCHITL OROURKE ; [facility] Fluconazole 150MG Oral Tablet 02/26/2017 - 02/28/2017 Provider: XOCHITL CHA Diagnosis: Acute vaginitis 1 daily Pt. is to take 1 now and then repeat in 3 days Last Documented On 7 9:53AM By XOCHITL OROURKE ; [facility] Medications Administered Includes: Administered Medications from this encounter No Administered Medications Recorded Vital Signs Includes: Vital Signs from this encounter Vital Name 08/13/2022 10:05A Blood Pressure Sitting L 110/70 BP Cuff Size Regular Temp-Temporal 98.1 Height (in) 60 Weight (lb) 113 Body Mass Index 22.1 Body Surface Area 1.5 Last Documented: On 08/13/2022 10:09A M ; [facility] Results Includes: Results discussed during [...] contraception Last Documented On 3 11:12AM ; [facility] education about contraception performed Last Documented On 3 11:09AM ; [facility] urinalysis was performed [id number] Last Documented On 3 11:07AM ; [facility] urine glucose negative Last Documented On 3 11:07AM ; [facility] urine protein negative Last Documented On 3 11:07AM ; [facility] an HCG test was negative [id number] Last Documented On 3 11:07AM ; [facility] urine leukocyte esterase 11866 Last Documented On 3 11:07AM ; [facility] urine nitrate negative Last Documented On 3 11:07AM ; [facility] normal urine ketones Last Documented On 3 11:07AM ; [facility] Medical History Includes: Medical History addressed during this encounter Description Last Updated LMP: 08/13/2022 Unsure of date. last unpr otected 3 weeks ago today 08/13/2022 Last Documented On 3 11:22AM ; [facility] Contraception: OCPs 08/13/2022 Last Documented On 3 11:22AM ; [facility] Sexually active last unprotected 3 weeks ago today 08/13/2022 Last Documented On 3 11:22AM ; [facility] Primary Care Provider: In Benjamin, unsure of name 02/06/2022 Last Documented On 3 10:05AM ; [facility] 0 03/17/2018 Last Documented On 3 10:05AM ; [facility] Family History Includes: Family History addressed during this encounter Description Last Updated Family history of diabetes mellitus jina cortés aunt and cousin 02/26/2017 Last Documented On 3 10:05AM ; [facility] Review of Systems Includes: Review of Systems [...] Check-Out Time Diagnosis PROBLEM VISIT XOCHITL HEATON [facility] 08/14/19 23 10:02AM 10:46AM Cervicitis,Fema le Pelvic Pain,Classic Migraine with Aura Without Intractable Migraine Without Status Migrainosus Insurance Includes: Active Insurance Policies Plan Name Member ID Group # Subscriber Relationship Effect yolanda Dates 1 - [facility] [id number] CHRISTINE DE LEON Clinical Notes Includes: Clinical Notes from this encounter * Progress note Date Encounter Last Documented by 08/13/2022 PROBLEM VISIT Last documented on 08/13/2022; 11:22 AM, XOCHITL CHA ; [facility] Active Problems & Conditions - G43.109 - [...] Medical/Surgical History Other: Primary Care Provider: In Benjamin, unsure of name Reported: LMP: 08/13/2022 Unsure [...]
--- OUTSIDE RECORDS SUMMARY | 2024-07-19 16:20 | XMS_ITS | Clinical Summary ---
Author Organization [facility] Address [address] [place] [address] Phone Care Team Providers Care Capacity Manager Name Role Phone JUMANA LAZO MD Unavailable [phone] Reason for Visit and Chief [...] Without Status Migrainosus 08/13/2022 XOCHITL OQUENDO RN [facility] Active Last Documented On 3 10:32AM ; [facility] Plan of Treatment Instructions to patient Instructions for patient : K eep the area around the vulva dry. Allow the area to have exposure to air. Avoid irritants such as fabric softeners and perfumed soaps.~ Last Documented On 3 11:31AM ; [facility] Education and Decision Aids were provided during visit for: Patient counseling :to consi darion pelvic U/S if pelvic pain persists despite analgesics Last Documented On 3 11:31AM ; [facility] Assessments Includes: Assessments from this encounter Findings - [N76.0 - Acute vaginitis] Vaginitis - Last Documented On 08/29/2022 11:32AM ; [facility] Instructions Includes: Instructions from this encounter Instructions to patient Instructions for patient : K eep the area around the vulva dry. Allow the area to have exposure to air. Avoid irritants such as fabric softeners and perfumed soaps.~ Last Documented On 3 11:31AM ; [facility] Education and Decision Aids were provided during visit for: Patient counseling :to consi darion pelvic U/S if pelvic pain persists despite analgesics Last Documented On 3 11:31AM ; [facility] Medical Equipment - Implanted [...] and then repeat in 3 days [facility] - [address] , [facility] [place] [phone] - Last Documented On 3 11:27AM By XOCHITL OROURKE ; [facility] Ibuprofen 800 MG Oral Tablet Provider: XOCHITL HEATON 7 day supply: 21 tablet, 2 refills Diagnosis: Dysmenorrhea, unspecified One tablet three times a day Pharmacy: [facility] - [address] [facility], [phone] - Last Documented On 3 11:43AM By XOCHITL OROURKE ; [facility] Past Medications on file Azithromycin 500 MG Oral Tablet 08/13/2022 - 08/14/2022 Provider: XOCHITL HEATON Diagnosis: Inflammatory dis ease of cervix uteri as directed 2 TABLETS NOW Last Documented On 3 10:34AM By XOCHITL OROURKE ; [facility] Condoms Miscellaneous 08/13/2022 - 08/23/2022 Provider: XOCHITL HEATON Diagnosis: Encounter for ot h general cnsl and advice on contraception as directed Last Documented On 3 10:47AM By XOCHITL OROUREK ; [facility] Clindamycin HCl 300 MG [...] On 1 2:41PM By XOCHITL OROURKE ; [facility] Fluconazole 150 MG Oral Tablet 07/05/2020 - 07/07/2020 Provider: XOCHITL CHA Diagnosis: Acute vaginitis 1 daily Pt. is to take 1 now and then repeat in 3 days Last Documented On 1 8:19AM By XOCHITL OROURKE ; [facility] NuvaRing 0.12-0.015 MG/24HR Vaginal Ring 07/15/2019 - 09/09/2019 Provider: XOCHITL CHA Diagnosis: Encounter for in itial prescription of vagnl ring as directed INSERT RING IN V AGINA FIRST FRIDAY AFTER MENSES BEGINS REMOVE RING AFTER 21 DAYS/3WEEKS REINSERT NEW RING DAY Friday Last Documented On 0 9:52AM By XOCHITL OROURKE ; [facility] Condoms Miscellaneous 04/20/2019 - 05/02/2019 Provider: XOCHITL CHA Diagnosis: Encounter for surveillance of contraceptives, unspecified as directed Last Documented On 9 10:33AM By XOCHITL OROURKE ; [facility] Terconazole 0.8% Vaginal Cream 12/29/2017 - 01/01/2018 Provider: XOCHITL CHA Diagnosis: Acute vaginitis USE DIRECTED 1 ap in vaga delores every night x 3 apply bid to external genitals Last Documented On 8 3:53PM By XOCHITL OROURKE ; [facility] Naproxen 500MG Oral Tablet 03/07/2017 - 03/12/2017 Provider: XOCHITL CHA Diagnosis: Encounter for reed rveillance of other contraceptives One tablet twice a day USE A S DIRECTED W/FOOD DON'T EXCEED 2 IN 24 HOURS Last Documented On 7 3:12PM By XOCHITL OROURKE ; [facility] Loestrin 1/20 (21) 1-20MG-MCG Oral Tablet 02/28/2017 - 05/23/2017 Provider: XOCHITL HEATON Diagnosis: Encounter for ot h general cnsl and advice on contraception One tablet daily TAKE DIRECTED W/FOOD Last Documented On 7 2:24PM By XOCHITL OROURKE ; [facility] Fluconazole 150MG Oral Tablet 02/26/2017 - 02/28/2017 Provider: XOCHITL CHA BC Diagnosis: Acute vaginitis 1 daily Pt. is to take 1 now and then repeat in 3 days Last Documented On 7 9:53AM By XOCHITL OROURKE ; [facility] Medications Administered Includes: Administered Medications from this encounter No Administered Medications Recorded Vital Signs Includes: Vital Signs from this encounter Vital Name 08/29/2022 11:05A Blood Pressure Sitting L 108/70 BP Cuff Size Regular Temp-Temporal 97.2 Height (in) 60 Weight (lb) 113 Body Mass Index 22.1 Body Surface Area 1.5 Last Documented: On 08/29/2022 11:09A M ; [facility] Results Includes: Results discussed [...] 08/29/2022 Last Documented On 3 11:32AM ; [facility] History of vaginitis 08/29/2022 Last Documented On 3 11:32AM ; [facility] LMP: 08/13/2022 08/29/2022 Last Documented On 3 11:32AM ; [facility] Primary Care Provider: In Labelle, unsure of name 02/06/2022 Last Documented On 3 11:04AM ; [facility] 0 03/17/2018 Last Documented On 3 11:04AM ; [facility] Family History Includes: Family History addressed during this encounter Description Last Updated Family history of diabetes mellitus muro rnal aunt and cousin 02/26/2017 Last Documented On 3 11:04AM ; [facility] Review of Systems Includes: Review of Systems [...] Out Time Diagnosis PROBLEM VISIT XOCHITL HEATON [facility] 3 11:01AM 11:28AM Vaginitis Insurance Includes: Active Insurance Policies Plan Name Member ID Group # Subscriber Relationship Effect yolanda Dates 1 - [facility] [id number] CHRISTINE DE LEON Clinical Notes Includes: Clinical Notes from this encounter * Progress note Date Encounter Last Documented by 08/29/2022 PROBLEM VISIT Last documented on 08/29/2022; 11:32 AM, XOCHITL CHA ; [facility] Active Problems & Conditions - G43.109 - [...] Medical/Surgical History Other: Primary Care Provider: In Labelle, unsure of name Reported: LMP: 08/13/2022. : [...]
--- OUTSIDE RECORDS SUMMARY | 2024-07-19 16:20 | XMS_ITS ---
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 08/13/2022 XOCHITL OQUENDO RN [facility] Active Last Documented On 3 10:32AM ; [facility] Plan of Treatment Findings Encounter Date Ordered Clinical summary pro vided to patient WELL WOMAN - ESTABLISHED PT with XOCHITL OQUENDO RN [facility] 02/06/2022 Last Documented On 2 12:20PM ; [facility] Ordered Clinical summary pro vided to patient 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 EXAM with XOCHITL OQUENDO RN [facility] 03/21/2020 Last Documented On 0 10:31AM ; [facility] Ordered Clinical summary pro vided to patient MAGNETIZER EXAM with XOCHITL OQUENDO RN [facility] 04/20/2019 Last Documented On 9 10:33AM ; [facility] Ordered Clinical summary pro vided to patient MAGNETIZER EXAM with XOCHITL OQUENDO RN [facility] 03/17/2018 Last Documented On 8 9:32AM ; [facility] Ordered Clinical summary pro vided to patient MED CHECK with XOCHITL OQUENDO RN [facility] 05/28/2017 Last Documented On 7 2:55PM ; [facility] Ordered Clinical summary pro vided to patient PROCEDURE OFFICE with XOCHITL OQUENDO RN [facility] 03/07/2017 Last Documented On 7 3:11PM ; [facility] Ordered Clinical summary pro vided to patient NEW MAGNETIZER EXAM with XOCHITL OQUENDO RN [facility] 02/26/2017 Last Documented On 7 9:53AM ; [facility] Instructions to patient Instructions for patient : K eep the area around the vulva dry. Allow the area to have exposure to air. Avoid irritants such as fabric softeners and perfumed soaps.~ Last Documented On 3 11:31AM ; [facility] Instructions for patient ER if bleeding through reg. sized pad/tampon < 1 hour Last Documented On 3 11:07AM ; [facility] Instructions for patient ER if dizzy, vomiting or light-headed due to heavy bleeding Last Documented On 3 11:07AM ; [facility] Return to the clinic if cond ition worsens or new symptoms arise Last Documented On 3 11:08AM ; [facility] Instructions for patient : B reast Self Exam discussed and technique reviewed Last Documented On 2 10:58AM ; [facility] Use a condom during sexual i ntercourse Last Documented On 2 10:58AM ; [facility] Instructed to call if excess yloanda bleeding or abdominal/pelvic pain Last Documented On 2 10:58AM ; [facility] Recommend diet and exercise at least 30 min three times per week Last Documented On 2 10:58AM ; [facility] Instructions for patient : K eep the area around the vulva dry. Allow the area to have exposure to air. Avoid irritants such as fabric softeners and perfumed soaps.~ Last Documented On 1 2:57PM ; [facility] Return to the clinic if cond ition worsens or new symptoms arise pt. declines any STD serology Last Documented On 1 2:59PM ; [facility] Instructions for patient : B reast Self Exam discussed and technique reviewed Last Documented On 0 10:26AM ; [facility] Use a condom during sexual i ntercourse Last Documented On 0 10:26AM ; [facility] Instructed to call if excess yolanda bleeding or abdominal/pelvic pain Last Documented On 0 10:26AM ; [facility] Recommend diet and exercise at least 30 min three times per week Last Documented On 0 10:26AM ; [facility] Instructions for patient : B reast Self Exam discussed and technique reviewed Last Documented On 9 10:22AM ; [facility] Use a condom during sexual i ntercourse Last Documented On 9 10:22AM ; [facility] Instructed to call if excess yolanda bleeding or abdominal/pelvic pain Last Documented On 9 10:22AM ; [facility] Recommend diet and exercise at least 30 min three times per week Last Documented On 9 10:22AM ; [facility] Instructions for patient : B reast Self Exam discussed and technique reviewed Last Documented On 8 9:08AM ; [facility] Use a condom during sexual i ntercourse Last Documented On 8 9:08AM ; [facility] Instructed to call if excess yolanda bleeding or abdominal/pelvic pain Last Documented On 8 9:08AM ; [facility] Recommend diet and exercise at least 30 min three times per week Last Documented On 8 9:08AM ; [facility] Instructions for patient : B reast Self Exam discussed and technique reviewed Last Documented On 7 8:59AM ; [facility] Use a condom during sexual i ntercourse Last Documented On 7 8:59AM ; [facility] Instructed to call if excess yolanda bleeding or abdominal/pelvic pain Last Documented On 7 8:59AM ; [facility] Recommend diet and exercise at least 30 min three times per week Last Documented On 7 8:59AM ; [facility] Education and Decision Aids were provided during visit for: Patient counseling :to consi darion pelvic U/S if pelvic pain persists despite analgesics Last Documented On 3 11:31AM ; [facility] Patient counseling : STD pre vention. I discussed with the patient that condoms can reduce the chance of getting an STD but not eliminate it. Increased exposure from multiple sex partners also discussed Last Documented On 3 11:08AM ; [facility] Patient education RE: yeni guan signals associated with hormonal contraceptive use including abdominal, chest, or leg pain, headaches or visual disturbances Last Documented On 2 10:58AM ; [facility] Patient Education: Daily porter cium and vitamin D Last Documented On 2 10:58AM ; [facility] Patient counseling : STD pre vention. I discussed with the patient that condoms can reduce the chance of getting an STD but not eliminate it. Increased exposure from multiple sex partners also discussed Last Documented On 1 2:57PM ; [facility] Discussed smoking and drug u se Last Documented On 0 10:26AM ; [facility] Patient education RE: warnin g signals associated with hormonal contraceptive use including abdominal, chest, or leg pain, headaches or visual disturbances Last Documented On 0 10:26AM ; [facility] Patient Education: Daily porter cium and vitamin D Last Documented On 0 10:26AM ; [facility] Patient counseling : Use of contraceptives discussed in detail including rare occurrence of heart attack, stroke, and leg clots. Patient understands that smoking increases the risk of serious side effects with any steroid-based contraceptive method Last Documented On 0 2:19PM ; [facility] Patient education RE: warnin g signals associated with hormonal contraceptive use including abdominal, chest, or leg pain, headaches or visual disturbances Last Documented On 9 10:22AM ; [facility] Patient Education: Daily porter cium and vitamin D Last Documented On 9 10:22AM ; [facility] Patient education RE: warnin g signals associated with hormonal contraceptive use including abdominal, chest, or leg pain, headaches or visual disturbances Last Documented On 8 9:08AM ; [facility] Patient Education: Daily porter cium and vitamin D Last Documented On 8 9:08AM ; [facility] Patient counseling : Use of contraceptives discussed in detail including rare occurrence of heart attack, stroke, and leg clots. Patient understands that smoking increases the risk of serious side effects with any steroid-based contraceptive method Last Documented On 7 2:30PM ; [facility] Discussed smoking and drug u se Last Documented On 7 8:59AM ; [facility] Patient education RE: warnin g signals associated with hormonal contraceptive use including abdominal, chest, or leg pain, headaches or visual disturbances Last Documented On 7 8:59AM ; [facility] Inquiry and counseling about contraceptive practices Last Documented On 7 9:46AM ; [facility] Patient Education: Daily portre cium and vitamin D Last Documented On 7 8:59AM ; [facility] Candidiasis Vulvovaginitis I nformation Sheet Given vaginal hygiene review Last Documented On 7 9:48AM ; [facility] control consent review ed and signed Last Documented On 7 8:59AM ; [facility] Assessments Includes: Assessments for all patient encounters Findings Encounter Date Vaginitis PROBLEM VISIT with XOCHITL OQUENDO RN [facility] 08/29/2022 Last Documented On 3 11:32AM ; [facility] Cervicitis r/o infection PROBLEM VISIT with FACUNDO OQUENDO RN [facility] 08/13/2022 Last Documented On 3 11:22AM ; [facility] Classic migraine (with aura) without intractable migraine without status migrainosus PROBLEM VISIT with XOCHITL OQUENDO RN [facility] 08/13/2022 Last Documented On 3 11:22AM ; [facility] Female pelvic pain PROBLEM VISIT with XOCHITL CLARK RN [facility] 08/13/2022 Last Documented On 3 11:22AM ; [facility] Female pelvic pain WELL WOMAN - ESTABLI SHED PT with XOCHITL OQUENDO RN [facility] 02/06/2022 Last Documented On 2 12:20PM ; [facility] Routine gynecological exam w ith abnormal findings WELL WOMAN - ESTABLISHED PT with XOCHITL CHA 02/06/2022 Last Documented On 2 12:20PM ; [facility] Screen malignant neoplasm cervix WELL WO MAN - ESTABLISHED PT with XOCHITL OQUENDO RN [facility] 02/06/2022 Last Documented On 2 12:20PM ; [facility] Vaginitis CHART UPDATE with XOCHITL CHA 07/21/2020 Last Documented On 1 11:52AM ; [facility] Vaginitis r/o trichomonas PROBLEM VISIT with BENNY OQUENDO [facility] 07/18/2020 Last Documented On 1 3:06PM ; [facility] NORMAL FEMALE EXAM ANNUAL 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 MANAGER EXAM with XOCHITL OQUENDO [facility] 03/21/2020 Last Documented On 0 10:31AM ; [facility] Encounter for contraceptive surveillance, unspecified MED CHECK with XOCHITL OQUENDO [facility] 08/16/2019 Last Documented On 0 2:30PM ; [facility] NORMAL FEMALE EXAM MAGNETIZER EXAM with XOCHITL Rodriguez [facility] 04/20/2019 Last Documented On 9 10:33AM ; [facility] NORMAL FEMALE EXAM MAGNETIZER EXAM with XOCHITL Rodriguez [facility] 03/17/2018 Last Documented On 8 9:32AM ; [facility] Encounter for contraceptive surveillance, unspecified MED CHECK with XOCHITL OQUENDO [facility] 05/28/2017 Last Documented On 7 2:55PM ; [facility] Encounter for implantable reed bdermal contraceptive PROCEDURE OFFICE with XOCHITL OQUENDO RN [facility] 03/07/2017 Last Documented On 7 3:11PM ; [facility] Contraceptive management NEW MAGNETIZER EXAM with XOCHITL OQUENDO [facility] 02/26/2017 Last Documented On 7 9:53AM ; [facility] NORMAL FEMALE EXAM NEW MAGNETIZER EXAM with XOCHITL STOVER RN [facility] 02/26/2017 Last Documented On 7 9:53AM ; [facility] Vaginitis NEW MAGNETIZER EXAM with XOCHITL OQUENDO [facility] 02/26/2017 Last Documented On 7 9:53AM ; [facility] Instructions Includes: Instructions for all patient encounters Instructions to patient Instructions for patient : K eep the area around the vulva dry. Allow the area to have exposure to air. Avoid irritants such as fabric softeners and perfumed soaps.~ Last Documented On 3 11:31AM ; [facility] Instructions for patient ER if bleeding through reg. sized pad/tampon < 1 hour Last Documented On 3 11:07AM ; [facility] Instructions for patient ER if dizzy, vomiting or light-headed due to heavy bleeding Last Documented On 3 11:07AM ; [facility] Return to the clinic if cond ition worsens or new symptoms arise Last Documented On 3 11:08AM ; [facility] Instructions for patient : B reast Self Exam discussed and technique reviewed Last Documented On 2 10:58AM ; [facility] Use a condom during sexual i ntercourse Last Documented On 2 10:58AM ; [facility] Instructed to call if excess yolnada bleeding or abdominal/pelvic pain Last Documented On 2 10:58AM ; [facility] Recommend diet and exercise at least 30 min three times per week Last Documented On 2 10:58AM ; [facility] Instructions for patient : K eep the area around the vulva dry. Allow the area to have exposure to air. Avoid irritants such as fabric softeners and perfumed soaps.~ Last Documented On 1 2:57PM ; [facility] Return to the clinic if cond ition worsens or new symptoms arise pt. declines any STD serology Last Documented On 1 2:59PM ; [facility] Instructions for patient : B reast Self Exam discussed and technique reviewed Last Documented On 0 10:26AM ; [facility] Use a condom during sexual i ntercourse Last Documented On 0 10:26AM ; [facility] Instructed to call if excess yolanda bleeding or abdominal/pelvic pain Last Documented On 0 10:26AM ; [facility] Recommend diet and exercise at least 30 min three times per week Last Documented On 0 10:26AM ; [facility] Instructions for patient : B reast Self Exam discussed and technique reviewed Last Documented On 9 10:22AM ; [facility] Use a condom during sexual i ntercourse Last Documented On 9 10:22AM ; [facility] Instructed to call if excess yolanda bleeding or abdominal/pelvic pain Last Documented On 9 10:22AM ; [facility] Recommend diet and exercise at least 30 min three times per week Last Documented On 9 10:22AM ; [facility] Instructions for patient : B reast Self Exam discussed and technique reviewed Last Documented On 8 9:08AM ; [facility] Use a condom during sexual i ntercourse Last Documented On 8 9:08AM ; [facility] Instructed to call if excess yolanda bleeding or abdominal/pelvic pain Last Documented On 8 9:08AM ; [facility] Recommend diet and exercise at least 30 min three times per week Last Documented On 8 9:08AM ; [facility] Instructions for patient : B reast Self Exam discussed and technique reviewed Last Documented On 7 8:59AM ; [facility] Use a condom during sexual i ntercourse Last Documented On 7 8:59AM ; [facility] Instructed to call if excess yolanda bleeding or abdominal/pelvic pain Last Documented On 7 8:59AM ; [facility] Recommend diet and exercise at least 30 min three times per week Last Documented On 7 8:59AM ; [facility] Education and Decision Aids were provided during visit for: Patient counseling :to consi darion pelvic U/S if pelvic pain persists despite analgesics Last Documented On 3 11:31AM ; [facility] Patient counseling : STD pre vention. I discussed with the patient that condoms can reduce the chance of getting an STD but not eliminate it. Increased exposure from multiple sex partners also discussed Last Documented On 3 11:08AM ; [facility] Patient education RE: yeni guan signals associated with hormonal contraceptive use including abdominal, chest, or leg pain, headaches or visual disturbances Last Documented On 2 10:58AM ; [facility] Patient Education: Daily porter cium and vitamin D Last Documented On 2 10:58AM ; [facility] Patient counseling : STD pre vention. I discussed with the patient that condoms can reduce the chance of getting an STD but not eliminate it. Increased exposure from multiple sex partners also discussed Last Documented On 1 2:57PM ; [facility] Discussed smoking and drug u se Last Documented On 0 10:26AM ; [facility] Patient education RE: warnin g signals associated with hormonal contraceptive use including abdominal, chest, or leg pain, headaches or visual disturbances Last Documented On 0 10:26AM ; [facility] Patient Education: Daily porter cium and vitamin D Last Documented On 0 10:26AM ; [facility] Patient counseling : Use of contraceptives discussed in detail including rare occurrence of heart attack, stroke, and leg clots. Patient understands that smoking increases the risk of serious side effects with any steroid-based contraceptive method Last Documented On 0 2:19PM ; [facility] Patient education RE: warnin g signals associated with hormonal contraceptive use including abdominal, chest, or leg pain, headaches or visual disturbances Last Documented On 9 10:22AM ; [facility] Patient Education: Daily porter cium and vitamin D Last Documented On 9 10:22AM ; [facility] Patient education RE: warnin g signals associated with hormonal contraceptive use including abdominal, chest, or leg pain, headaches or visual disturbances Last Documented On 8 9:08AM ; [facility] Patient Education: Daily porter cium and vitamin D Last Documented On 8 9:08AM ; [facility] Patient counseling : Use of contraceptives discussed in detail including rare occurrence of heart attack, stroke, and leg clots. Patient understands that smoking increases the risk of serious side effects with any steroid-based contraceptive method Last Documented On 7 2:30PM ; [facility] Discussed smoking and drug u se Last Documented On 7 8:59AM ; [facility] Patient education RE: warnin g signals associated with hormonal contraceptive use including abdominal, chest, or leg pain, headaches or visual disturbances Last Documented On 7 8:59AM ; [facility] Inquiry and counseling about contraceptive practices Last Documented On 7 9:46AM ; [facility] Patient Education: Daily porter cium and vitamin D Last Documented On 7 8:59AM ; [facility] Candidiasis Vulvovaginitis I nformation Sheet Given vaginal hygiene review Last Documented On 7 9:48AM ; [facility] control consent review ed and signed Last Documented On 7 8:59AM ; [facility] Medical Equipment - Implanted Devices Includes: Current and historical Devices No Medical Equipment Recorded Medications Includes: Current and historical Medications Past Medications on file Fluconazole 150 MG Oral Tablet 08/29/2022 - 08/31/2022 Provider: XOCHITL HEATON Diagnosis: Acute vaginitis 1 daily Pt. is to take 1 now and then repeat in 3 days Last Documented On 3 11:27AM By XOCHITL OROURKE ; [facility] Ibuprofen 800 MG Oral Tablet 08/29/2022 - 09/19/2022 Provider: XOCHITL HEATON Diagnosis: Dysmenorrhea, unspecified One tablet three times a day Last Documented On 3 11:43AM By XOCHITL OROURKE ; [facility] Azithromycin 500 MG Oral Tablet 08/13/2022 - 08/14/2022 Provider: XOCHITL HEATON Diagnosis: Inflammatory dis ease of cervix uteri as directed 2 TABLETS NOW Last Documented On 3 10:34AM By XOCHITL OROURKE ; [facility] Condoms Miscellaneous 08/13/2022 - 08/23/2022 Provider: XOCHITL HEATON Diagnosis: Encounter for ot h general cnsl and advice on contraception as directed Last Documented On 3 10:47AM By XOCHITL OROURKE ; [facility] Levora 0.15/30 (28) 0.15-30 MG-MCG Oral Tablet 02/06/2022 - 08/13/2022 Provider: XOCHITL CHA BC Diagnosis: Encounter for surveillance of contraceptive pills One tablet daily Last Documented On 3 11:10AM By XOCHITL OROURKE ; [facility] Clindamycin HCl 300 MG Oral Capsule 07/21/2020 - 07/28/2020 Provider: XOCHITL HEATON Diagnosis: Acute vaginitis One tablet twice a day Last Documented On 1 11:53AM By XOCHITL OROURKE ; [facility] metroNIDAZOLE 500 MG Oral Tablet 07/18/2020 - 07/19/2020 Provider: XOCHITL CHA BC Diagnosis: Acute vaginitis as directed ALL 4 TABS X 1 D OSE WITH FOOD ETOH WARNING X 48 HOURS Last Documented On 1 2:41PM By XOCHITL OROURKE ; [facility] Fluconazole 150 MG Oral Tablet 07/05/2020 - 07/07/2020 Provider: XOCHITL CHA BC Diagnosis: Acute vaginitis 1 daily Pt. is to take 1 now and then repeat in 3 days Last Documented On 1 8:19AM By XOCHITL OROURKE ; [facility] Levora 0.15/30 (28) 0.15-30 MG-MCG Oral Tablet 03/21/2020 - 02/06/2022 Provider: XOCHITL OQUENDO RN [facility] Diagnosis: Encounter for surveillance of contraceptive pills One tablet daily Last Documented On 2 11:19AM By XOCHITL OROURKE ; [facility] NuvaRing 0.12-0.015 MG/24HR Vaginal Ring 08/24/2019 - 03/21/2020 Provider: XOCHITL OQUENDO RN [facility] BC Diagnosis: Encounter for in itial prescription of vagnl ring as directed insert ring into vagina first friday after menses begins Last Documented On 0 10:09AM By DEEPIKA ANDRADE LPN ; [facility] NuvaRing 0.12-0.015 MG/24HR Vaginal Ring 08/16/2019 - 03/21/2020 Provider: XOCHITL OQUENDO RN [facility] BC Diagnosis: Encounter for surveillance of contraceptives, unspecified as directed insert ring after menses begins and leave in 21 days, remove for 7 days and repeat Last Documented On 0 10:09AM By DEEPIKA ANDRADE LPN ; [facility] NuvaRing 0.12-0.015 MG/24HR Vaginal Ring 07/15/2019 - 09/09/2019 Provider: XOCHITL OQUENDO RN [facility] BC Diagnosis: Encounter for in itial prescription of vagnl ring as directed INSERT RING IN V AGINA FIRST FRIDAY AFTER MENSES BEGINS REMOVE RING AFTER 21 DAYS/3WEEKS REINSERT NEW RING DAY Friday Last Documented On 0 9:52AM By XOCHITL OROURKE ; [facility] NuvaRing 0.12-0.015 MG/24HR Vaginal Ring 04/20/2019 - 07/15/2019 Provider: XOCHITL CHA BC Diagnosis: Encounter for in itial prescription of vagnl ring as directed INSERT RING IN V AGINA FIRST FRIDAY AFTER MENSES BEGINS REMOVE RING AFTER 21 DAYS/3WEEKS REINSERT NEW RING DAY Friday Last Documented On 0 9:48AM By XOCHITL OROURKE ; [facility] NuvaRing 0.12-0.015 MG/24HR Vaginal Ring 04/20/2019 - 08/24/2019 Provider: XOCHITL CHA BC Diagnosis: Encounter for in itial prescription of vagnl ring as directed insert ring into vagina first friday after menses begins Last Documented On 0 11:02AM By XOCHITL MORALES ; [facility] Condoms Miscellaneous 04/20/2019 - 05/02/2019 Provider: XOCHITL CHA BC Diagnosis: Encounter for surveillance of contraceptives, unspecified as directed Last Documented On 9 10:33AM By XOCHITL OROURKE ; [facility] Levora 0.15/30 (28) 0.15-30 MG-MCG Oral Tablet 03/12/2019 - 04/20/2019 Provider: JUMANA Pina Diagnosis: Encounter for surveillance of contraceptives, unspecified One tablet daily Last Documented On 9 10:22AM By XOCHITL MORALES ; [facility] Levora 0.15/30 (28) 0.15-30MG-MCG Oral Tablet 03/17/2018 - 03/12/2019 Provider: XOCHITL OQUENDO RN GUILLERMO BC Diagnosis: Encounter for surveillance of contraceptives, unspecified One tablet daily TAKE DIR ECTED START 1ST PACK FRIDAY AFTER NEXT MENSES Last Documented On 03/12/2019 4:27PM By JUMANA LAZO MD ; [facility] Terconazole 0.8% Vaginal Cream 12/29/2017 - 01/01/2018 Provider: XOCHITL OQUENDO RN GUILLERMO BC Diagnosis: Acute vaginitis USE DIRECTED 1 ap in vaga delores every night x 3 apply bid to external genitals Last Documented On 8 3:53PM By XOCHITL OROURKE ; [facility] Levora 0.15/30 (28) 0.15-30MG-MCG Oral Tablet 08/22/2017 - 03/17/2018 Provider: XOCHITL CHA Diagnosis: Encounter for surveillance of contraceptives, unspecified One tablet daily TAKE DIR ECTED START 1ST PACK FRIDAY AFTER NEXT MENSES Last Documented On 8 9:12AM By XOCHITL OROURKE ; [facility] Levora 0.15/30 (28) 0.15-30MG-MCG Oral Tablet 05/28/2017 - 08/22/2017 Provider: XOCHITL CHA Diagnosis: Encounter for surveillance of contraceptives, unspecified One tablet daily TAKE DIR ECTED START 1ST PACK FRIDAY AFTER NEXT MENSES Last Documented On 8 11:46AM By XOCHITL OROURKE ; [facility] Loestrin Fe 1/20 1-20MG-MCG Oral Tablet 05/28/2017 - 0 08/22/2017 Provider: Diagnosis: Last Documented On 8 11:44AM By XOCHITL OROURKE ; [facility] Naproxen 500MG Oral Tablet 03/07/2017 - 03/12/2017 Provider: XOCHITL OQUENDO RN GUILLERMO Diagnosis: Encounter for reed rveillance of other contraceptives One tablet twice a day USE A S DIRECTED W/FOOD DON'T EXCEED 2 IN 24 HOURS Last Documented On 7 3:12PM By XOCHITL OROURKE ; [facility] Loestrin 1/20 (21) 1-20MG-MCG Oral Tablet 02/28/2017 - 05/23/2017 Provider: XOCHITL OQUENDO RN GUILLERMO Diagnosis: Encounter for ot h general cnsl and advice on contraception One tablet daily TAKE DIRECTED W/FOOD Last Documented On 7 2:24PM By XOCHITL OROURKE ; [facility] Lo Loestrin Fe 1 MG-10 MCG /10 MCG Oral Tablet 02/26/2017 - 02/28/2017 Provider: XOCHITL OQUENDO RN GUILLERMO BC Diagnosis: Encounter for ot h general cnsl and advice on contraception One tablet daily USE DIRECTED Last Documented On 7 2:16PM By XOCHITL CHA- ; [facility] Fluconazole 150MG Oral Tablet 02/26/2017 - 02/28/2017 Provider: XOCHITL HEATON Diagnosis: Acute vaginitis 1 daily Pt. is to take 1 now and then repeat in 3 days Last Documented On 7 9:53AM By XOCHITL OROURKE ; [facility] Nexplanon 68MG Subcutaneous Implant 02/07/2014 - 05/27 Provider: Diagnosis: Last Documented On 7 4:19PM By XOCHITL OROURKE ; [facility] Medications Administered Includes: Administered Medications in patient's chart No Administered Medications Recorded Results Includes: Results from 07/19/2023 through 07/19/2024 No Results Recorded For Specified Dates History of Present Illness History of Present Illness not supported for this document type No History of Present Illness Recorded Social History Description Last Updated Activities 02/06/2022 Last Documented On 2 12:20PM ; [facility] Alcohol use: 2 drinks or less per day no ne 02/06/2022 Last Documented On 2 12:20PM ; [facility] Current nonsmoker 02/06/2022 Last Documented On 2 12:20PM ; [facility] Currently in school 02/06/2022 Last Documented On 2 12:20PM ; [facility] Education history 02/06/2022 Last Documented On 2 12:20PM ; [facility] Educational level 02/06/2022 Last Documented On 2 12:20PM ; [facility] No consumption of alcohol 02/06/2022 Last Documented On 2 12:20PM ; [facility] Non-smoker 02/06/2022 Last Documented On 2 12:20PM ; [facility] Not a smoker 02/06/2022 Last Documented On 2 12:20PM ; [facility] 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 history 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 [facility] [employer] [place] 11/2021 Last Documented On 2 12:20PM ; [facility] Sexually active 02/06/2022 Last Documented On 2 12:20PM ; [facility] Single 02/06/2022 Last Documented On 2 12:20PM ; [facility] Smoking status : Never smoker 02/06/2022 Last Documented On 2 12:20PM ; [facility] Not using alcohol 02/06/2022 Last Documented On 2 12:20PM ; [facility] Not using drugs 02/06/2022 Last Documented On 2 12:20PM ; [facility] Sexually active with 1 partners in the l ast year 02/06/2022 Last Documented On 2 12:20PM ; [facility] Tobacco non-user 02/06/2022 Last Documented On 2 12:20PM ; [facility] Medical History Includes: Medical History in patient's chart Description Last Updated Sexually active last unprote cted 5 weeks ago, denies any sexual activity since last visit 08/29/2022 Last Documented On 3 11:32AM ; [facility] History of vaginitis 08/29/2022 Last Documented On 3 11:32AM ; [facility] LMP: 08/13/2022 08/29/2022 Last Documented On 3 11:32AM ; [facility] Contraception: OCPs 08/13/2022 Last Documented On 3 11:22AM ; [facility] Primary Care Provider: In [place], unsure of name 02/06/2022 Last Documented On 2 12:20PM ; [facility] 0 03/17/2018 Last Documented On 8 9:32AM ; [facility] Family History Includes: Family History in patient's chart Description Last Updated Family history of diabetes mellitus muro rnal aunt and cousin 02/26/2017 Last Documented On 7 9:53AM ; [facility] Review of Systems Review of [...] Effect yolanda Dates 1 - [facility] [phone] [address] LEON Clinical Notes Includes: Signed Clinical Notes starting from 06/21/2022 No Clinical Notes Recorded
== END 2024-07-19 15:05 | disposition home or self-care (01) ==
PROVIDERS: Emergency Provider Registered Nurse
DX: M94.0 Chondrocostal junction syndrome [Tietze] (principal); F17.290 Nicotine dependence, other tobacco product, uncomplicated
CPT/HCPCS: 71046; 99213; G0463